=== PATIENT | male | born 1955 | race Caucasian/White ===

== ENCOUNTER 2021-08-17 14:20 | Outpatient (CLI) | payer MEDICARE | END 2021-08-17 14:21 | disposition critical access hospital (66) | LOC: EMS 14:20 | DX: R40.4 Transient alteration of awareness (principal); R53.83 Other fatigue; R15.9 Full incontinence of feces | CPT/HCPCS: A0425; A0429 ==

== ENCOUNTER 2021-08-17 14:35 | Emergency (ER) | payer MEDICARE ==
--- NOTE | 2021-08-17 14:51 | ED Physician Documentation ---
History of Present Illness - Stated complaint Stated Complaint: AMS - History obtained from History obtained from: EMS, Other () - Additonal information Additional information: This is a 65-year-old male who presents via EMS for altered mental status. According to EMS and his the patient had a prostate biopsy at [facility] on 08/15. On 08/16 he became confused and was having some diarrhea. He was incontinent of stool which is unusual for him. Patient is typically healthy and active gentleman who is independent with in the home, drives and his only medical conditions according to his is hypertension. According to yes terday he started to be somewhat confused and weak. He apparently woke up during the night and had incontinence of bowel, according to the he had diarrhea dripping along the floor in the house and then he got back into bed. at the diarrhea was dark and possibly bloody. He has been confused since that time. He will arouse to name and attempt to answer questions but cannot come up with words. He himself denies any specific concerns, he denies any headache, vision changes, speech difficulty, facial weakness or numbness, chest pain or dyspnea, abdominal pain, nausea vomiting or diarrhea, urinary symptoms. He does not however know where he is nor does he know the date. He adamantly denies any drug or alcohol consumption and states he was not given any medication after the procedure. Review of Systems Unable to obtain: AMS PD PAST MEDICAL HISTORY - Past Medical History Past Medical History: Yes Cardiovascular: Hypertension - Present Medications Home Medications: Ambulatory Orders Medication Instructions Recorded Confirmed Lisinopril [Zestril] 20 mg PO DAILY 08/17/21 08/17/21 Nebivolol HCl [Bystolic] 20 mg PO DAILY 08/17/21 08/17/21 Tamsulosin [Flomax] 0.4 mg PO DAILY 08/17/21 08/17/21 allopurinoL [Allopurinol] 300 mg PO DAILY 08/17/21 08/17/21 - Allergies Allergies/Adverse Reactions: Allergies Allergy/AdvReac Type Severity Reaction Status Date / Time No Known Drug Allergies Allergy Verified 08/17/21 15:42 PD ED PE NORMAL - Vitals Vital signs reviewed: Yes - General General: No acute distress, Well developed/nourished, Other (Patient is drowsy, oriented to self but not time or place.) - HEENT HEENT: Atraumatic, PERRL, EOMI, Moist mucous membranes, Pharynx benign - Neck Neck: Supple, no meningeal sign, No adenopathy, No JVD - Cardiac Cardiac: RRR, No murmur, No gallop, No rub, Strong equal pulses - Respiratory Respiratory: No respiratory distress, Clear bilaterally - Abdomen Abdomen: Normal bowel sounds, Soft, Non tender, Non distended, No organomegaly - Derm Derm: Normal color, No rash, Other (Skin is cool and clammy) - Extremities Extremities: No deformity, No tenderness to palpate, Normal ROM s pain, No edema, No calf tenderness / cord - Neuro Neuro: No motor deficit, No sensory deficit, Other (Patient is slow to respond to questions and unable to answer most questions. He is oriented to self only.He moves all extremities on command, he has no focal weakness or facial droop.) Eye Opening: Spontaneous Motor: Obeys Commands Verbal: Confused GCS Score: 14 Results - Vitals Vitals: Vital Signs - 24 hr 08/17/21 08/17/21 08/17/21 14:45 15:16 15:39 Temperature 36.6 C 35.5 C L Heart Rate 76 75 78 Respiratory 18 20 Rate Blood Pressure 124/73 128/74 O2 Saturation 98 95 98 08/17/21 08/17/21 08/17/21 15:46 16:00 16:30 Temperature 36.3 C L Heart Rate 77 74 80 Respiratory 19 15 19 Rate Blood Pressure 125/72 134/95 H 149/82 H O2 Saturation 95 95 97 08/17/21 08/17/21 08/17/21 17:00 17:30 18:00 Temperature 36.3 C L 36.6 C Heart Rate 78 76 81 Respiratory 19 18 17 Rate Blood Pressure 148/92 H 107/72 144/73 H O2 Saturation 98 97 99 08/17/21 08/17/21 18:30 19:00 Temperature 36.5 C Heart Rate 82 85 Respiratory 16 24 Rate Blood Pressure 153/84 H 149/123 H O2 Saturation 97 98 Oxygen O2 Source Room air - EKG (time done) No standard instances Rate: Rate (enter#) (75) Rhythm: NSR Hodges: LAD Intervals: Prolonged QT Compare to prior EKG: Old EKG unavailable Computer interpretation: Agree with computer - Labs Labs: Laboratory Tests 08/17/21 08/17/21 08/17/21 15:11 15:11 15:11 WBC 28.9 H RBC 4.56 L Hgb 15.0 Hct 42.5 MCV 93.2 MCH 32.9 H MCHC 35.3 RDW 14.0 Plt Count 87 L MPV 11.4 Neut # (Auto) Not Reportable Lymph # (Auto) Not Reportable Bulloch # (Auto) Not Reportable Eos # (Auto) Not Reportable Baso # (Auto) Not Reportable Absolute Nucleated RBC Not Reportable Total Counted 100 Band Neuts % (Manual) 24 H Abnorm Lymph % (Manual) 0 Nucleated RBC % Not Reportable Neutrophils # (Manual) 26.6 H Lymphocytes # (Manual) 1.2 L Monocytes # (Manual) 0.6 Eosinophils # (Manual) 0.3 Basophils # (Manual) 0.3 H Differential Comment MANUAL DIFFERENTIAL WBC Morphology NORMAL APPEARANCE Platelet Estimate DECREASED (<130,000) Platelet Morphology NORMAL APPEARANCE RBC Morph Micro Appear NORMAL APPEARANCE Sodium 137 Potassium 4.8 Chloride 101 Carbon Dioxide 19 L Anion Gap 17.0 H BUN 58 H Creatinine 4.3 H Estimated GFR (MDRD) 14 L Glucose 126 H Lactic Acid 3.5 H* Calcium 8.7 Total Bilirubin 1.6 H AST 48 H ALT 29 Alkaline Phosphatase 66 Ammonia Troponin I High Sens Total Protein 7.2 Albumin 3.4 Globulin 3.8 Albumin/Globulin Ratio 0.9 L Urine Color Urine Clarity Urine pH Ur Specific [place] Urine Protein Urine Glucose (UA) Urine Ketones Urine Occult Blood Urine Nitrite Urine Bilirubin Urine Urobilinogen Ur Leukocyte Esterase Urine RBC Urine WBC Ur Squamous Epith Cells Urine Bacteria Urine Culture Comments Nasal Adenovirus (PCR) Nasal B. parapertussis DNA (PCR) Nasal Coronavir 229E PCR Nasal Coronavir HKU1 PCR Nasal Coronavir NL63 PCR Nasal Coronavir OC43 PCR Nasal Enterovir/Rhinovir PCR Nasal Influenza B PCR Nasal Influenza A PCR Nasal Parainfluen 1 PCR Nasal Parainfluen 2 PCR Nasal Parainfluen 3 PCR Nasal Parainfluen 4 PCR Nasal RSV (PCR) Nasal B.pertussis DNA PCR Nasal C.pneumoniae (PCR) Robert Human Metapneumo PCR Nasal M.pneumoniae (PCR) Nasal SARS-CoV-2 (PCR) Urine Opiates Screen Ur Oxycodone Screen Urine Methadone Screen Ur Propoxyphene Screen Ur Barbiturates Screen Ur Tricyclics Screen Ur Phencyclidine Scrn Ur Amphetamine Screen U Methamphetamines Scrn U Benzodiazepines Scrn Urine Cocaine Screen U Cannabinoids Screen Ethyl Alcohol 08/17/21 08/17/21 08/17/21 15:11 15:11 15:30 WBC RBC Hgb Hct MCV MCH MCHC RDW Plt Count MPV Neut # (Auto) Lymph # (Auto) Bulloch # (Auto) Eos # (Auto) Baso # (Auto) Absolute Nucleated RBC Total Counted Band Neuts % (Manual) Abnorm Lymph % (Manual) Nucleated RBC % Neutrophils # (Manual) Lymphocytes # (Manual) Monocytes # (Manual) Eosinophils # (Manual) Basophils # (Manual) Differential Comment WBC Morphology Platelet Estimate Platelet Morphology RBC Morph Micro Appear Sodium Potassium Chloride Carbon Dioxide Anion Gap BUN Creatinine Estimated GFR (MDRD) Glucose Lactic Acid Calcium Total Bilirubin AST ALT Alkaline Phosphatase Ammonia 21.8 Troponin I High Sens 1738.3 H* Total Protein Albumin Globulin Albumin/Globulin Ratio Urine Color BROWN Urine Clarity CLOUDY Urine pH 5.0 Ur Specific [place] >=1.030 H Urine Protein >=300 H Urine Glucose (UA) NEGATIVE Urine Ketones 15 H Urine Occult Blood LARGE H Urine Nitrite POSITIVE H Urine Bilirubin NEGATIVE Urine Urobilinogen 1 (NORMAL) Ur Leukocyte Esterase MODERATE H Urine RBC TNTC H Urine WBC >25 H Ur Squamous Epith Cells FEW Squamous Urine Bacteria Many H Urine Culture Comments INDICATED Nasal Adenovirus (PCR) Nasal B. parapertussis DNA (PCR) Nasal Coronavir 229E PCR Nasal Coronavir HKU1 PCR Nasal Coronavir NL63 PCR Nasal Coronavir OC43 PCR Nasal Enterovir/Rhinovir PCR Nasal Influenza B PCR Nasal Influenza A PCR Nasal Parainfluen 1 PCR Nasal Parainfluen 2 PCR Nasal Parainfluen 3 PCR Nasal Parainfluen 4 PCR Nasal RSV (PCR) Nasal B.pertussis DNA PCR Nasal C.pneumoniae (PCR) Robert Human Metapneumo PCR Nasal M.pneumoniae (PCR) Nasal SARS-CoV-2 (PCR) Urine Opiates Screen NEGATIVE Ur Oxycodone Screen NEGATIVE Urine Methadone Screen NEGATIVE Ur Propoxyphene Screen NEGATIVE Ur Barbiturates Screen NEGATIVE Ur Tricyclics Screen NEGATIVE Ur Phencyclidine Scrn NEGATIVE Ur Amphetamine Screen NEGATIVE U Methamphetamines Scrn NEGATIVE U Benzodiazepines Scrn NEGATIVE Urine Cocaine Screen NEGATIVE U Cannabinoids Screen NEGATIVE Ethyl Alcohol 08/17/21 08/17/21 08/17/21 16:18 16:20 18:30 WBC RBC Hgb Hct MCV MCH MCHC RDW Plt Count MPV Neut # (Auto) Lymph # (Auto) Bulloch # (Auto) Eos # (Auto) Baso # (Auto) Absolute Nucleated RBC Total Counted Band Neuts % (Manual) Abnorm Lymph % (Manual) Nucleated RBC % Neutrophils # (Manual) Lymphocytes # (Manual) Monocytes # (Manual) Eosinophils # (Manual) Basophils # (Manual) Differential Comment WBC Morphology Platelet Estimate Platelet Morphology RBC Morph Micro Appear Sodium Potassium Chloride Carbon Dioxide Anion Gap BUN Creatinine Estimated GFR (MDRD) Glucose Lactic Acid Calcium Total Bilirubin AST ALT Alkaline Phosphatase Ammonia Troponin I High Sens 1254.8 H* Total Protein Albumin Globulin Albumin/Globulin Ratio Urine Color Urine Clarity Urine pH Ur Specific [place] Urine Protein Urine Glucose (UA) Urine Ketones Urine Occult Blood Urine Nitrite Urine Bilirubin Urine Urobilinogen Ur Leukocyte Esterase Urine RBC Urine WBC Ur Squamous Epith Cells Urine Bacteria Urine Culture Comments Nasal Adenovirus (PCR) NOT DETECTED Nasal B. parapertussis DNA (PCR) NOT DETECTED Nasal Coronavir 229E PCR NOT DETECTED Nasal Coronavir HKU1 PCR NOT DETECTED Nasal Coronavir NL63 PCR NOT DETECTED Nasal Coronavir OC43 PCR NOT DETECTED Nasal Enterovir/Rhinovir PCR NOT DETECTED Nasal Influenza B PCR NOT DETECTED Nasal Influenza A PCR NOT DETECTED Nasal Parainfluen 1 PCR NOT DETECTED Nasal Parainfluen 2 PCR NOT DETECTED Nasal Parainfluen 3 PCR NOT DETECTED Nasal Parainfluen 4 PCR NOT DETECTED Nasal RSV (PCR) NOT DETECTED Nasal B.pertussis DNA PCR NOT DETECTED Nasal C.pneumoniae (PCR) NOT DETECTED Robert Human Metapneumo PCR NOT DETECTED Nasal M.pneumoniae (PCR) NOT DETECTED Nasal SARS-CoV-2 (PCR) NOT DETECTED Urine Opiates Screen Ur Oxycodone Screen Urine Methadone Screen Ur Propoxyphene Screen Ur Barbiturates Screen Ur Tricyclics Screen Ur Phencyclidine Scrn Ur Amphetamine Screen U Methamphetamines Scrn U Benzodiazepines Scrn Urine Cocaine Screen U Cannabinoids Screen Ethyl Alcohol < 5.0 08/17/21 18:30 WBC RBC Hgb Hct MCV MCH MCHC RDW Plt Count MPV Neut # (Auto) Lymph # (Auto) Bulloch # (Auto) Eos # (Auto) Baso # (Auto) Absolute Nucleated RBC Total Counted Band Neuts % (Manual) Abnorm Lymph % (Manual) Nucleated RBC % Neutrophils # (Manual) Lymphocytes # (Manual) Monocytes # (Manual) Eosinophils # (Manual) Basophils # (Manual) Differential Comment WBC Morphology Platelet Estimate Platelet Morphology RBC Morph Micro Appear Sodium Potassium Chloride Carbon Dioxide Anion Gap BUN Creatinine Estimated GFR (MDRD) Glucose Lactic Acid 3.0 H* Calcium Total Bilirubin AST ALT Alkaline Phosphatase Ammonia Troponin I High Sens Total Protein Albumin Globulin Albumin/Globulin Ratio Urine Color Urine Clarity Urine pH Ur Specific [place] Urine Protein Urine Glucose (UA) Urine Ketones Urine Occult Blood Urine Nitrite Urine Bilirubin Urine Urobilinogen Ur Leukocyte Esterase Urine RBC Urine WBC Ur Squamous Epith Cells Urine Bacteria Urine Culture Comments Nasal Adenovirus (PCR) Nasal B. parapertussis DNA (PCR) Nasal Coronavir 229E PCR Nasal Coronavir HKU1 PCR Nasal Coronavir NL63 PCR Nasal Coronavir OC43 PCR Nasal Enterovir/Rhinovir PCR Nasal Influenza B PCR Nasal Influenza A PCR Nasal Parainfluen 1 PCR Nasal Parainfluen 2 PCR Nasal Parainfluen 3 PCR Nasal Parainfluen 4 PCR Nasal RSV (PCR) Nasal B.pertussis DNA PCR Nasal C.pneumoniae (PCR) Robert Human Metapneumo PCR Nasal M.pneumoniae (PCR) Nasal SARS-CoV-2 (PCR) Urine Opiates Screen Ur Oxycodone Screen Urine Methadone Screen Ur Propoxyphene Screen Ur Barbiturates Screen Ur Tricyclics Screen Ur Phencyclidine Scrn Ur Amphetamine Screen U Methamphetamines Scrn U Benzodiazepines Scrn Urine Cocaine Screen U Cannabinoids Screen Ethyl Alcohol PD MEDICAL DECISION MAKING - ED course Complexity details: reviewed old records, reviewed results, re-evaluated patient, considered differential, d/w patient, d/w family ED course: This is a 65-year-old male who presented with altered mental status. He is normally independently ambulatory, drives, and lives on the third floor of the house and has no difficulty going up and down, converses without difficulty. Today he is significantly altered. There is concern for possible infection given recent procedure, consider sepsis, toxic encephalopathy, CVA, Medication induced. We obtain a septic work-up which was concerning for a white blood cell count of 28.9, platelets of 87, acute renal failure, lactate of 3.5, and a troponin of greater than 1000. His urinalysis positive for infection, his EKG is nonischemic. There was Concern for possible perforation as it was thought he had a colonoscopy recently though after Talking with Jennifer Emery he had a prostate biopsy. Unable to do a CT with contrast given his renal function CT, noncontrast was reassuring. We we will treat the patient for sepsis secondary to urinary tract infection with Zosyn and IV fluids and repeat his lactate. He is currently hemodynamically stable. I spoke with the booking officer at [facility] and explained the patient had a nonischemic appearing EKG though grossly elevated troponin. He recommended no acute treatment at this time, repeat the troponin and if it is uptrending Then consider transfer, But otherwise he would not start a heparin drip or any other emergent treatment at this time. I discussed with the daytime hospitalist who felt uncomfortable taking this patient at this time. We reviewed we repeated the troponin which improved to 1200 and I will follow up with the unit hospitalist to see if this would be an appropriate admission at this time. Patient Has remained hemodynamically stable Throughout ER stay. He is somewhat restless and confused and does require bilateral wrist restraints for his safety at this time as he has pulled out 3 IVs and is attempting out of bed at times. Departure - Departure Disposition: 66 [facility] DC/Xfer Clinical Impression: Urinary tract infection, Toxic metabolic encephalopathy, Sepsis
[2021-08-17] MEDS ORDERED: IOPAMIDOL-300 100 ML VIAL ONE (14:58)
[2021-08-17 15:20] LABS: BASOPHILS % (AUTO) 0.5 %; EOSINOPHILS % (AUTO) 0.1 %; HCT - HEMATOCRIT 42.5 % (42.0-52.0); LYMPHOCYTES % (AUTO) 4.2 %; MEAN CORPUSCULAR HEMOGLOBIN 32.9 pg (27.0-31.0); MEAN CORPUSCULAR HGB CONC 35.3 g/dL (32.0-36.0); MEAN CORPUSCULAR VOLUME 93.2 fL (80.0-94.0); MEAN PLATELET VOLUME 11.4 fL (7.4-11.4); MONOCYTES % (AUTO) 2.5 %; NEUTROPHILS % (AUTO) 88.6 %; PLT - PLATELET COUNT 87 10^3/uL (130-450); RED BLOOD COUNT 4.56 10^6/uL (4.70-6.10); WHITE BLOOD COUNT 28.9 x10^3/uL (4.8-10.8)
[2021-08-17 15:23] LABS: ABNORMAL LYMPHS % (MANUAL) 0 %
[2021-08-17 15:32] LABS: ALBUMIN 3.4 g/dL (3.2-5.5); ALBUMIN/GLOBULIN RATIO 0.9 (1.0-2.2); BILIRUBIN,TOTAL 1.6 mg/dL (0.2-1.0); CALCIUM 8.7 mg/dL (8.5-10.3); CREATININE 4.3 mg/dL (0.6-1.2); POTASSIUM 4.8 mmol/L (3.5-5.0); TOTAL PROTEIN 7.2 g/dL (6.7-8.2)
[2021-08-17 15:38] LABS: MUDS CUTOFF CONCENTRATIONS CUTOFF CONC BELOW:
[2021-08-17 15:40] LABS: LACTIC ACID, VENOUS 3.5 mmol/L (0.5-2.2)
[2021-08-17 15:41] LABS: GLUCOSE, URINE (UA) NEGATIVE (NEGATIVE); KETONES,URINE (UA) 15 mg/dL (NEGATIVE); LEUKOCYTE ESTERASE, URINE MODERATE (NEGATIVE); NITRITE,URINE POSITIVE (NEGATIVE); OCCULT BLOOD,URINE LARGE (NEGATIVE); PROTEIN,URINE >=300 mg/dL (NEGATIVE); UROBILINOGEN,URINE 1 (NORMAL) E.U./dL (NORMAL)
[2021-08-17] MEDS ORDERED: SODIUM CHLORIDE 0.9% 1,000 ML IV STA ×4 (15:41→20:31)
[2021-08-17] MEDS ORDERED: PIPERACILLIN/TAZOBACTAM 3.375 GM in SODIUM CHLORIDE 0.9% MINIBAG 100 ML IV STA (15:42)
[2021-08-17 15:45] LABS: BACTERIA,URINE Many /HPF (None Seen); BILIRUBIN,URINE NEGATIVE (NEGATIVE); CLARITY,URINE CLOUDY (CLEAR); ICTOTEST,URINE NEGATIVE; RBC,URINE TNTC /HPF (0-5); SQUAMOUS EPITHELIAL CELL,UR FEW Squamous (<= Few); WBC,URINE >25 /HPF (0-3)
[2021-08-17 15:50] LABS: AMPHETAMINE SCREEN,URINE NEGATIVE (NEGATIVE); BARBITURATE SCREEN,UR NEGATIVE (NEGATIVE); BENZODIAZEPINES SCREEN, URINE NEGATIVE (NEGATIVE); COCAINE SCREEN URINE NEGATIVE (NEGATIVE); METHADONE SCREEN, URINE NEGATIVE (NEGATIVE); METHAMPHETAMINES SCREEN, URINE NEGATIVE (NEGATIVE); OPIATE SCREEN, URINE NEGATIVE (NEGATIVE); OXYCODONE SCREEN, URINE NEGATIVE (NEGATIVE); PROPOXYPHENE SCREEN, URINE NEGATIVE (NEGATIVE); THC CANNABINOID SCREEN, URINE NEGATIVE (NEGATIVE); TRICYCLIC ANTIDEPRESSANT,URINE NEGATIVE (NEGATIVE)
[2021-08-17 15:57] LABS: BAND NEUTROPHILS % (MANUAL) 24 %; BASOPHILS # (MANUAL) 0.3 10^3/uL (0-0.1); BASOPHILS % (MANUAL) 1 %; DIFFERENTIAL COMMENT MANUAL DIFFERENTIAL; EOSINOPHILS # (MANUAL) 0.3 10^3/uL (0-0.7); LYMPHOCYTES # (MANUAL) 1.2 10^3/uL (1.5-3.5); LYMPHOCYTES % (MANUAL) 4 %; MONOCYTES # (MANUAL) 0.6 10^3/uL (0.0-1.0); NEUTROPHILS # (MANUAL) 26.6 10^3/uL (1.5-6.6); PLATELET ESTIMATE, MANUAL DECREASED (<130,000) (NORMAL); PLATELET MORPHOLOGY NORMAL APPEARANCE (NORMAL); RBC MORPHOLOGY (MULTIPLE) NORMAL APPEARANCE (NORMAL); WBC MORPHOLOGY (MULTIPLE) NORMAL APPEARANCE (NORMAL)
--- NOTE | 2021-08-17 16:20 | CT Report ---
PROCEDURE: HEAD WO INDICATIONS: AMS TECHNIQUE: Noncontrast 4.5 mm thick angled axial sections acquired from the foramen magnum to the vertex. For r adiation dose reduction, the following was used: automated exposure control, adjustment of mA and/or kV according to patient size. COMPARISON: None. FINDINGS: Image quality: Excellent. CSF spaces: Basal cisterns are patent. No extra-axial fluid collections. Ventricles are normal in size and shape. Brain: No midline shift. No intracranial masses or hemorrhage. [place]ourke-white matter interface is norm al. Skull and face: Calvarium and visualized facial bones are intact, without suspicious lesions. Sinuses: Visualized sinuses and mastoids are clear. IMPRESSION: No acute intracranial process. Reviewed by: Dami Obando MD on 08/17/2021 4:19 PM PDT Approved by: Dami Obando MD on 08/17/2021 4:19 PM PDT Station ID: [id number]
--- NOTE | 2021-08-17 16:27 | CT Report ---
PROCEDURE: Abdomen/Pelvis WO INDICATIONS: concern for perf, recent colonoscopy, now septic TECHNIQUE: Noncontrast 5 mm thick sections acquired from the diaphragms to the symphysis. 5 mm coronal and sagi ttal reformats were then performed. For radiation dose reduction, the following was used: automated exposure control, adjustment of mA and/or kV according to patient size. COMPARISON: None. FINDINGS: Image quality: Excellent. ABDOMEN: Lung bases: Lung bases are clear. Heart size is normal. Solid organs: Liver and spleen are normal in size. Gallbladder is unremarkable Pancreas is normal in contours. There is a small fat-containing mass involving the left adrenal, consistent with a benig n myelolipoma. Kidneys appear somewhat small. No hydronephrosis. Multiple bilateral renal cysts. Ques tion exophytic hyperdense left upper pole renal cyst versus small solid mass measuring approximately 1.5 cm. Peritoneum and bowel: Unenhanced bowel loops demonstrate normal wall thickness and caliber. No free fluid or air. Nodes and vessels: No retroperitoneal or mesenteric adenopathy by size criteria. Aorta and inferior vena cava are normal in caliber. Miscellaneous: No ventral hernias. PELVIS: Genitourinary: Prostate is enlarged. Bladder is mostly decompressed. There is diffuse bladder wall th ickening. Miscellaneous: No inguinal hernias or adenopathy. Bones: No suspicious bony lesions. No vertebral body compression fractures. Lumbar degenerative ch esteban. IMPRESSION: 1. No evidence of free air post colonoscopy. No evidence of acute abdominal process. 2. Enlarged prostate. 3. Decompressed bladder with diffuse bladder wall thickening. 4. Question 1.5 cm exophytic hyperdense cyst versus small solid mass off the upper pole of the left k idney. If desired, this can be evaluated with ultrasound on a nonemergent basis. Reviewed by: Carlos Ramirez MD on 08/17/2021 4:25 PM PDT Approved by: Carlos Ramirez MD on 08/17/2021 4:25 PM PDT Station ID: [id number]
[2021-08-17 17:20] LABS: CORONAVIRUS 229E-RESP PCR NOT DETECTED; CORONAVIRUS HKU1-RESP PCR NOT DETECTED; CORONAVIRUS NL63-RESP PCR NOT DETECTED; CORONAVIRUS OC43-RESP PCR NOT DETECTED; HUMAN METAPNEUMOVIRUS NOT DETECTED; INFLUENZA A- RESP PCR PANEL NOT DETECTED; RHINOVIRUS/ENTEROVIRUS NOT DETECTED; SARS-CoV-2 -RESP PCR PANEL NOT DETECTED
[2021-08-17 17:21] LABS: B. PARAPERTUSSIS- RESP PCR PAN NOT DETECTED; B. PERTUSSIS- RESP PCR PANEL NOT DETECTED; C. PNEUMONIAE- RESP PCR PANEL NOT DETECTED; INFLUENZA B - RESP PCR PANEL NOT DETECTED; M. PNEUMONIAE- RESP PCR PANEL NOT DETECTED; PARAINFLUENZA VIRUS 1 NOT DETECTED; PARAINFLUENZA VIRUS 2 NOT DETECTED; PARAINFLUENZA VIRUS 3 NOT DETECTED; PARAINFLUENZA VIRUS 4 NOT DETECTED; RSV- RESP PCR PANEL NOT DETECTED
[2021-08-17 19:57] LABS: FECAL OCCULT BLOOD (FIT) NEGATIVE (NEGATIVE)
[2021-08-17 20:19] LABS: INR 1.7 (0.8-1.2); PT - PROTHROMBIN TIME 19.4 secs (9.9-12.6)
[2021-08-17 20:22] LABS: ALBUMIN 3.5 g/dL (3.2-5.5); ALBUMIN/GLOBULIN RATIO 1.2 (1.0-2.2); BILIRUBIN,TOTAL 1.7 mg/dL (0.2-1.0); CALCIUM 8.1 mg/dL (8.5-10.3); CREATININE 4.3 mg/dL (0.6-1.2); POTASSIUM 4.1 mmol/L (3.5-5.0); TOTAL PROTEIN 6.5 g/dL (6.7-8.2)
[2021-08-17] MEDS ORDERED: MORPHINE 2 MG/ML CARPUJECT IVP STA (21:04)
[2021-08-17] MEDS ORDERED: PIPERACILLIN/TAZOBACTAM 2.25 GM in SODIUM CHLORIDE 0.9% MINIBAG 100 ML IV SCH (22:00)
[2021-08-17 22:09] LABS: LACTIC ACID, VENOUS 3.3 mmol/L (0.5-2.2)
[2021-08-17] MEDS: hydrALAZINE INJ 20 MG/ML VIAL IVP PRN ×2 (22:13→22:52)
[2021-08-17] MEDS ORDERED: ONDANSETRON 4 MG/2 ML VIAL IVP STA (22:41)
[2021-08-17] MEDS ORDERED: ONDANSETRON 4 MG/2 ML VIAL ONE (22:43)
[2021-08-17 23:07] VITALS: BP 193/85
== END 2021-08-17 23:08 | disposition short-term general hospital (02) ==
LOC: EDUNIT# → ED 14:35
DX: N39.0 Urinary tract infection, site not specified (principal); A41.9 Sepsis, unspecified organism; N17.9 Acute kidney failure, unspecified; G92 Toxic encephalopathy; I10 Essential (primary) hypertension; N13.6 Pyonephrosis; Z20.822 Contact with and (suspected) exposure to COVID-19; R77.8 Other specified abnormalities of plasma proteins
CPT/HCPCS: 36415; 51702; 70450; 74176; 80053; 80306; 81001; 82140; 82274; 83605; 83690; 84484; 85025; 85384; 85610; 87040; 87077; 87086; 87150; 87181; 87631; 93005; 96361; 96365; 96366; 96375; 99285; G0480; 0202U; 80320

== ENCOUNTER 2021-08-17 23:05 | Outpatient (CLI) | payer MEDICARE | END 2021-08-17 23:06 | disposition short-term general hospital (02) | LOC: EMS 23:05 | PROVIDERS: ATTEND Emergency Medicine | DX: A41.9 Sepsis, unspecified organism (principal); N39.0 Urinary tract infection, site not specified; N40.0 Benign prostatic hyperplasia without lower urinary tract symptoms; N17.9 Acute kidney failure, unspecified; G93.41 Metabolic encephalopathy | CPT/HCPCS: A0425; A0426 ==

== ENCOUNTER 2021-10-16 08:00 | Outpatient (CLI) | payer MEDICARE ==
[2021-10-16 18:14] LABS: BASOPHILS # (AUTO) 0.1 10^3/uL (0.0-0.1); BASOPHILS % (AUTO) 0.7 %; EOSINOPHILS # (AUTO) 0.2 10^3/uL (0.0-0.7); HCT - HEMATOCRIT 30.6 % (42.0-52.0); HGB - HEMOGLOBIN 9.8 g/dL (14.0-18.0); LYMPHOCYTES # (AUTO) 1.4 10^3/uL (1.5-3.5); LYMPHOCYTES % (AUTO) 16.8 %; MEAN CORPUSCULAR HEMOGLOBIN 30.9 pg (27.0-31.0); MEAN CORPUSCULAR VOLUME 96.5 fL (80.0-94.0); MEAN PLATELET VOLUME 11.1 fL (7.4-11.4); MONOCYTES # (AUTO) 0.5 10^3/uL (0.0-1.0); MONOCYTES % (AUTO) 6.4 %; NEUTROPHILS # (AUTO) 6.2 10^3/uL (1.5-6.6); PLT - PLATELET COUNT 233 10^3/uL (130-450); RED BLOOD COUNT 3.17 10^6/uL (4.70-6.10); RED CELL DISTRIBUTION WIDTH 15.3 % (12.0-15.0); WHITE BLOOD COUNT 8.5 x10^3/uL (4.8-10.8)
[2021-10-16 18:25] LABS: ALBUMIN 3.7 g/dL (3.2-5.5); ALBUMIN/GLOBULIN RATIO 1.2 (1.0-2.2); BILIRUBIN,TOTAL 0.7 mg/dL (0.2-1.0); CALCIUM 8.9 mg/dL (8.5-10.3); CREATININE 2.3 mg/dL (0.6-1.2); TOTAL PROTEIN 6.8 g/dL (6.7-8.2)
== END 2021-10-16 23:59 | disposition home or self-care (01) ==
LOC: LAB.N 08:00
PROVIDERS: ATTEND Nurse Practitioner
DX: R47.81 Slurred speech (principal)
CPT/HCPCS: 36415; 80053; 85025

== ENCOUNTER 2022-10-22 15:33 | Outpatient (CLI) | payer MEDICARE ==
[2022-10-22 16:03] LABS: BASOPHILS # (AUTO) 0.1 10^3/uL (0.0-0.1); BASOPHILS % (AUTO) 0.7 %; EOSINOPHILS # (AUTO) 0.1 10^3/uL (0.0-0.7); EOSINOPHILS % (AUTO) 1.9 %; HCT - HEMATOCRIT 33.1 % (42.0-52.0); HGB - HEMOGLOBIN 10.7 g/dL (14.0-18.0); LYMPHOCYTES # (AUTO) 1.4 10^3/uL (1.5-3.5); LYMPHOCYTES % (AUTO) 18.6 %; MEAN CORPUSCULAR HEMOGLOBIN 30.1 pg (27.0-31.0); MEAN CORPUSCULAR HGB CONC 32.3 g/dL (32.0-36.0); MEAN CORPUSCULAR VOLUME 93.2 fL (80.0-94.0); MEAN PLATELET VOLUME 9.6 fL (7.4-11.4); MONOCYTES # (AUTO) 0.5 10^3/uL (0.0-1.0); NEUTROPHILS # (AUTO) 5.2 10^3/uL (1.5-6.6); NEUTROPHILS % (AUTO) 70.8 %; PLT - PLATELET COUNT 223 10^3/uL (130-450); RED BLOOD COUNT 3.55 10^6/uL (4.70-6.10); RED CELL DISTRIBUTION WIDTH 16.2 % (12.0-15.0); WHITE BLOOD COUNT 7.3 x10^3/uL (4.8-10.8)
[2022-10-22 16:07] LABS: PT - PROTHROMBIN TIME 54.4 secs (9.9-12.6)
[2022-10-22 16:10] LABS: ALBUMIN 3.4 g/dL (3.2-5.5); BILIRUBIN,TOTAL 0.4 mg/dL (0.2-1.0); CALCIUM 8.4 mg/dL (8.5-10.3); CREATININE 1.6 mg/dL (0.6-1.2); POTASSIUM 5.1 mmol/L (3.5-5.0); TOTAL PROTEIN 6.9 g/dL (6.7-8.2)
[2022-10-22 16:15] LABS: INR 5.4 (0.8-1.2)
== END 2022-10-22 15:34 | disposition home or self-care (01) ==
LOC: LAB 15:33
DX: C61 Malignant neoplasm of prostate (principal); C79.51 Secondary malignant neoplasm of bone
CPT/HCPCS: 36415; 80053; 84153; 85025; 85610

== ENCOUNTER 2022-10-27 11:26 | Outpatient (CLI) | payer MEDICARE ==
[2022-10-27 11:54] LABS: INR 1.2 (0.8-1.2)
== END 2022-10-27 11:27 | disposition home or self-care (01) ==
LOC: LAB 11:26
DX: Z79.01 Long term (current) use of anticoagulants (principal)
CPT/HCPCS: 36415; 85610

== ENCOUNTER 2024-12-07 07:09 | Inpatient (IN) ==
--- NOTE | 2024-12-07 07:26 | ED Physician Documentation ---
PD HPI DYSPNEA Stated complaint Stated Complaint: SOA/FLANK PX Chief complaint Chief Complaint: Resp History obtained from History obtained from: Patient and EMS History of Present Illness Similar symptoms before: Has not had sx before (prior some degree of CHF, but states current is much more than prior. History of CKI with care at [facility]. ) Recently seen: Emergency Dept (seen 2 days ago for weakness/fall and had head CT that was normal. Not apparently complaining of chest/abd tender at the time. Noted anemic with Hgb 6.5, trasnfused 2 units and was feeling mod better. ) Meds/Allgy Home Medications Ambulatory Orders Medication Instructions Recorded Confirmed allopurinol 300 mg tablet 300 mg PO DAILY 08/17/21 12/07/24 tamsulosin 0.4 mg capsule 0.8 mg PO HS 08/17/21 12/07/24 amlodipine 5 mg tablet 5 mg PO HS 12/07/24 12/07/24 bumetanide 1 mg tablet 1 mg PO DAILY 12/07/24 12/07/24 clonidine HCl 0.2 mg tablet 0.2 mg PO BID 12/07/24 12/07/24 enzalutamide 40 mg capsule (Xtandi) 160 mg PO DAILY 12/07/24 12/07/24 metoprolol succinate 25 mg 25 mg PO BID 12/07/24 12/07/24 tablet,extended release 24 hr oxycodone 5 mg tablet 2.5 - 5 mg PO Q4HR PRN pain 12/07/24 12/07/24 warfarin 2 mg tablet 4 mg PO DAILY 12/07/24 12/07/24 Allergies Allergies Allergy/AdvReac Type Severity Reaction Status Date / Time furosemide Allergy Mild tinnitis Verified 12/07/24 07:35 [facility] Medical History Medical History Atrial fibrillation Social History Social History Smoking Status: Never smoker Second hand tobacco smoke exposure: No Do you dip or chew tobacco?: No Do you vape?: No Patient requests smoking cessation consult: No Initiate information on smoking cessation: No Relationship: Level: Dependent Home Mobility Equipment: Wheeled walker Do you feel safe in your home environment?: Yes Suffered physical, verbal, emotional, or financial abuse?: No History of Abuse: No Substance Use: denies use Exam Constitutional abnormal general appearance (disheveled) and distress noted (seems weak and slow/effortful to answer questions. Tachypnea/tachycardia) (moderate) HENMT oral mucous membranes abnormal (dry) and oropharynx normal Lymph no lymphadenopathy noted Chest palpation of chest abnormal (tender lateral/posterior left chest wall without crepitance. LUQ abd too. ) Respiratory breath sounds equal bilaterally, abnormal respiratory effort (labored) and auscultation abnormal (vesicular breath sounds) Cardiovascular heart rate abnormal (tachycardic), rhythm abnormal (irregular), JVD noted (JVD noted at 60 degrees upright. ) and edema noted (2-3+ pitting edema in both legs up to the abdomen. Some edema in scrotum.) Gastrointestinal abdomen soft to palpation, tender to palpation (moderate) and (LUQ) and abnormal bowel sounds noted (hypoactive bowel sounds) Results Vitals Vitals: Vital Signs - 24 hr 12/07/24 07:10 12/07/24 07:59 12/07/24 08:04 Temperature 36.9 C Temperature Source Pulse Rate 123 H 120 H Respiratory Rate 26 H 24 Blood Pressure 146/91 H O2 Saturation 95 Oxygen Delivery Method O2 Source Room air Nasal cannula Oxygen Flow Rate If not protocol: Oxygen Flow, liters/minute Pain Intensity 7 8 12/07/24 08:16 12/07/24 08:25 12/07/24 08:35 Temperature 36.3 C L Temperature Source Temporal Artery Scan Pulse Rate 120 H Respiratory Rate 24 Blood Pressure 136/102 H O2 Saturation 94 Oxygen Delivery Method Room Air O2 Source Room air Oxygen Flow Rate If not protocol: Oxygen Flow, liters/minute Pain Intensity 8 8 12/07/24 08:56 12/07/24 09:12 12/07/24 09:13 Temperature Temperature Source Pulse Rate 121 H 109 H Respiratory Rate 20 18 Blood Pressure 153/86 H 127/102 H O2 Saturation 93 92 Oxygen Delivery Method O2 Source Room air Room air Oxygen Flow Rate If not protocol: Oxygen Flow, liters/minute Pain Intensity 8 9 9 12/07/24 09:15 12/07/24 09:20 12/07/24 09:25 Temperature Temperature Source Pulse Rate 110 H 116 H 114 H Respiratory Rate 18 21 24 Blood Pressure 136/81 H O2 Saturation 92 89 L 88 L Oxygen Delivery Method O2 Source Room air Room air Room air Oxygen Flow Rate If not protocol: Oxygen Flow, liters/minute Pain Intensity 9 8 8 12/07/24 09:30 12/07/24 09:45 12/07/24 09:52 Temperature Temperature Source Pulse Rate 113 H 113 H Respiratory Rate 88 H 25 H Blood Pressure 124/88 127/93 H O2 Saturation 25 L 90 L Oxygen Delivery Method Nasal Cannula O2 Source Room air Room air Oxygen Flow Rate 2 If not protocol: Oxygen Flow, liters/minute Pain Intensity 8 8 12/07/24 09:52 12/07/24 09:52 12/07/24 10:18 Temperature Temperature Source Pulse Rate 115 H 115 H Respiratory Rate 20 18 Blood Pressure 145/108 H O2 Saturation 94 97 Oxygen Delivery Method O2 Source Nasal cannula Nasal cannula Oxygen Flow Rate If not protocol: Oxygen Flow, liters/minute 2 2 Pain Intensity 8 8 7 12/07/24 10:52 12/07/24 11:51 12/07/24 12:09 Temperature Temperature Source Pulse Rate 116 H 106 H Respiratory Rate 22 18 Blood Pressure 134/102 H 140/108 H O2 Saturation 93 96 Oxygen Delivery Method O2 Source Nasal cannula Nasal cannula Oxygen Flow Rate If not protocol: Oxygen Flow, liters/minute 2 2 Pain Intensity 7 8 8 12/07/24 12:10 12/07/24 13:15 12/07/24 14:42 Temperature 36.2 C L Temperature Source Temporal Artery Scan Pulse Rate 115 H 113 H 118 H Respiratory Rate 22 20 20 Blood Pressure 145/103 H 140/106 H 135/102 H O2 Saturation 95 93 94 Oxygen Delivery Method O2 Source Nasal cannula Nasal cannula Room air Oxygen Flow Rate If not protocol: Oxygen Flow, liters/minute 2 2 Pain Intensity 8 0 8 12/07/24 15:00 Temperature Temperature Source Pulse Rate 117 H Respiratory Rate Blood Pressure 135/95 H O2 Saturation 96 Oxygen Delivery Method O2 Source Room air Oxygen Flow Rate If not protocol: Oxygen Flow, liters/minute Pain Intensity 8 Oxygen O2 Source Room air Oxygen Flow Rate 2 EKG (time done) 08:12: EKG releavant findings:: EKG personally interpreted by author of this note. Relevant findings are: Rate: Rate (enter#) (120) Rhythm: Atrial flutter Intervals: Prolonged QT QRS: No Wide QRS Ischemia: Non specific changes; No Hyperacute T waves Compare to prior EKG: Unchanged from prior EKG Labs Labs: Laboratory Tests 12/07/24 12/07/24 12/07/24 07:26 07:41 08:10 WBC 6.9 RBC 2.67 L Hgb 8.3 L Hct 27.7 L MCV 103.7 H MCH 31.1 H MCHC 30.0 L RDW 21.2 H Plt Count 257 MPV 9.3 Neut # (Auto) 5.0 Lymph # (Auto) 0.7 L [place] # (Auto) 0.7 Eos # (Auto) 0.0 Baso # (Auto) 0.0 Absolute Nucleated RBC 0.06 Nucleated RBC % 0.9 Manual Slide Review Indicated RBC Morph Micro Appear 4+ ANISOCYTOSIS PT 18.6 H INR 1.8 H Sodium 139 Potassium 6.3 H* Chloride 113 H Carbon Dioxide 16 L Anion Gap 10.0 BUN 52 H Creatinine 1.8 H Estimated GFR (MDRD) 38 L Glucose 154 H POC Whole Bld Glucose Calcium 8.3 L Magnesium 1.9 Total Bilirubin 1.0 AST 9 L ALT 8 L Alkaline Phosphatase 103 Troponin I High Sens 17.6 B-Natriuretic Peptide 4903 H Total Protein 6.3 L Albumin 2.9 L Globulin 3.4 Albumin/Globulin Ratio 0.9 L Lipase 14 Nasal Adenovirus (PCR) NOT DETECTED Nasal B. parapertussis DNA (PCR) NOT DETECTED Nasal Coronavir 229E PCR NOT DETECTED Nasal Coronavir HKU1 PCR NOT DETECTED Nasal Coronavir NL63 PCR NOT DETECTED Nasal Coronavir OC43 PCR NOT DETECTED Nasal Enterovir/Rhinovir PCR NOT DETECTED Nasal Influenza B PCR NOT DETECTED Nasal Influenza A PCR NOT DETECTED Nasal Parainfluen 1 PCR NOT DETECTED Nasal Parainfluen 2 PCR NOT DETECTED Nasal Parainfluen 3 PCR NOT DETECTED Nasal Parainfluen 4 PCR NOT DETECTED Nasal RSV (PCR) NOT DETECTED Nasal B.pertussis DNA PCR NOT DETECTED Nasal C.pneumoniae (PCR) NOT DETECTED Robert Human Metapneumo PCR NOT DETECTED Nasal M.pneumoniae (PCR) NOT DETECTED Nasal SARS-CoV-2 (PCR) NOT DETECTED Blood Type B POSITIVE Antibody Screen NEGATIVE JOSE, IgG Specific NEGATIVE JOSE, Polyspecific NEGATIVE JOSE, C3d Specific NEGATIVE 12/07/24 12/07/24 12/07/24 11:15 12:15 13:12 WBC RBC Hgb Hct MCV MCH MCHC RDW Plt Count MPV Neut # (Auto) Lymph # (Auto) [place] # (Auto) Eos # (Auto) Baso # (Auto) Absolute Nucleated RBC Nucleated RBC % Manual Slide Review RBC Morph Micro Appear PT INR Sodium 140 138 Potassium 6.6 H* 6.6 H* Chloride 113 H 111 Carbon Dioxide 19 L 18 L Anion Gap 8.0 9.0 BUN 53 H 53 H Creatinine 1.9 H 1.9 H Estimated GFR (MDRD) 35 L 35 L Glucose 146 H 204 H POC Whole Bld Glucose 151 Calcium 8.4 L 8.3 L Magnesium 1.9 Total Bilirubin AST ALT Alkaline Phosphatase Troponin I High Sens B-Natriuretic Peptide Total Protein Albumin Globulin Albumin/Globulin Ratio Lipase Nasal Adenovirus (PCR) Nasal B. parapertussis DNA (PCR) Nasal Coronavir 229E PCR Nasal Coronavir HKU1 PCR Nasal Coronavir NL63 PCR Nasal Coronavir OC43 PCR Nasal Enterovir/Rhinovir PCR Nasal Influenza B PCR Nasal Influenza A PCR Nasal Parainfluen 1 PCR Nasal Parainfluen 2 PCR Nasal Parainfluen 3 PCR Nasal Parainfluen 4 PCR Nasal RSV (PCR) Nasal B.pertussis DNA PCR Nasal C.pneumoniae (PCR) Robert Human Metapneumo PCR Nasal M.pneumoniae (PCR) Nasal SARS-CoV-2 (PCR) Blood Type Antibody Screen JOSE, IgG Specific JOSE, Polyspecific JOSE, C3d Specific PD Medical Decision Making ED course Complexity details: reviewed old records, reviewed results, considered differential (patient with some CAD by history and is on diuretic Bumex and beta naga. However, he states no prior episodes of similar degree of dyspnea nad edema. Recently seen for anemia with dysnpnea and given 2 units blood. So may have fluid overloaded. He does have edema and elevated BNP, so doubt TRALI. ), d/w patient, d/w family and d/w event management consultant (I talked with Dr. Landin who is on- call for nephrology at [facility] who stated he did not feel the patient needed to be transferred and declined from his perspective. He suggested continue Bumex 3 mg every 4-6 hours/ electrolytes. Continue Lokelma BIT/TID. No bicarb drip.) Reviewed Lab Results: Creatinine is about at baseline with potassium elevated at 6.3. Given dose of bicarb, calclium gluconate, and Lokelma. Repeat K is the sate as is creatinine, so repeated bicarb and also given D10 and insulin. Repeat Lokelma and calcium at direction of Neprhology, whom I consulted for potential transfer after discussion with hospitalist. Dr. Lopez said he did not feel the pt would benefit from transfer at this time given Creatinine at baseline. To continue diuresis with higher Bumex/diuretics. Consult further if needed. CT chest and abdomen did not show any hydronephrosis, nor lung injuryes. Identified is known bony lesions from prostate CA. Elder in did not show urinary retention and was used to show response to diuresis in this critically ill patient. Social Determinants of Health: Discussion with pt about goals of care found that the pt would not want dialysis if needed, though his present with him states they have not had prior discussion along the line of POLST/DNR/etc. The patient is somewhat foggy though process here, so it needs further exploration to see if accurate current decision on limits of care. Critical Care Time(min): 50 Comments: eval of critical lab values and therapeutic response to elevated creatinine and potassium, eval for trunk injuries. monitoring frequent HR and rhythm. Time Includes: Direct patient care, Reassess patient, Document care, Coordinate care and Medical consult (hospitalist and nephrology. ) Discharge Plan Discharge Patient Disposition: [facility] DC/Xfer Condition: Stable Clinical Impression: Acute exacerbation of CHF (congestive heart failure), Dyspnea, Atrial fibrillation/flutter, Chronic renal failure, Prostate cancer metastatic to bone, History of recent fall Anemia Qualifiers: Anemia type: unspecified type Qualified Code(s): D64.9 - Anemia, unspecified Chest wall contusion Qualifiers: Encounter type: initial encounter Laterality: left Qualified Code(s): S20.212A - Contusion of left front wall of thorax, initial encounter Interventions: ED Admission Assessment Last Done: 12/07/24 16:15
[2024-12-07] MEDS ORDERED: iohexoL-300 100 ML VIAL ONE ×2 (07:40→09:32)
[2024-12-07 07:56] LABS: BASOPHILS % (AUTO) 0.3 %; EOSINOPHILS % (AUTO) 0.1 %; HCT - HEMATOCRIT 27.7 % (42.0-52.0); HGB - HEMOGLOBIN 8.3 g/dL (14.0-18.0); LYMPHOCYTES # (AUTO) 0.7 10^3/uL (1.5-3.5); LYMPHOCYTES % (AUTO) 10.3 %; MEAN CORPUSCULAR HEMOGLOBIN 31.1 pg (27.0-31.0); MEAN CORPUSCULAR VOLUME 103.7 fL (80.0-94.0); MEAN PLATELET VOLUME 9.3 fL (7.4-11.4); MONOCYTES # (AUTO) 0.7 10^3/uL (0.0-1.0); MONOCYTES % (AUTO) 9.8 %; NEUTROPHILS % (AUTO) 72.1 %; NRBC ABSOLUTE COUNT (AUTO) 0.06 x10^3/uL; NUCLEATED RED BLOOD CELLS AUTO 0.9 /100WBC; PLT - PLATELET COUNT 257 10^3/uL (130-450); RED BLOOD COUNT 2.67 10^6/uL (4.70-6.10); RED CELL DISTRIBUTION WIDTH 21.2 % (12.0-15.0); WHITE BLOOD COUNT 6.9 x10^3/uL (4.8-10.8)
[2024-12-07] MEDS: ALBUTEROL NEB 2.5 MG/3 ML INH STA (07:57)
[2024-12-07 08:00] LABS: RBC MORPHOLOGY (MULTIPLE) 4+ ANISOCYTOSIS (NORMAL)
[2024-12-07 08:01] LABS: SLIDE REVIEW? Indicated
[2024-12-07 08:03] LABS: INR 1.8 (0.8-1.2); PT - PROTHROMBIN TIME 18.6 secs (9.9-12.6)
[2024-12-07] MEDS: MORPHINE 2 MG/ML CARPUJECT IVP STA (08:04)
[2024-12-07 08:05] LABS: MAGNESIUM 1.9 mg/dL (1.7-2.3)
[2024-12-07] MEDS: BUMETANIDE 1 MG/4 ML VIAL IVP STA ×3 (08:05→18:56)
[2024-12-07 08:12] LABS: ALBUMIN 2.9 g/dL (3.2-5.5); ALBUMIN/GLOBULIN RATIO 0.9 (1.0-2.2); CALCIUM 8.3 mg/dL (8.5-10.3); CREATININE 1.8 mg/dL (0.6-1.3); POTASSIUM 6.3 mmol/L (3.5-4.5); TOTAL PROTEIN 6.3 g/dL (6.4-8.9)
[2024-12-07 08:17] LABS: TROPONIN I HIGH SENSITIVITY 17.6 ng/L (2.3-19.7)
[2024-12-07] MEDS: LIDOCAINE 2% URO-JET 5 ML SYRINGE UR STA (08:39)
[2024-12-07] MEDS: SODIUM BICARBONATE ABBOJECT 50 MEQ/50 ML SYRINGE IVP STA (08:46)
[2024-12-07] MEDS: CALCIUM GLUC 1,000MG/50ML-NACL 1,000 MG/50 ML BAG IV STA ×2 (08:47→12:45)
[2024-12-07] MEDS: HYDROmorphone 0.5 MG/0.5 ML SYRINGE IVP STA (09:12)
[2024-12-07] MEDS: METOPROLOL 5 MG/5 ML VIAL IVP STA (09:14)
[2024-12-07 09:22] LABS: B. PARAPERTUSSIS- RESP PCR PAN NOT DETECTED; B. PERTUSSIS- RESP PCR PANEL NOT DETECTED; C. PNEUMONIAE- RESP PCR PANEL NOT DETECTED; CORONAVIRUS 229E-RESP PCR NOT DETECTED; CORONAVIRUS HKU1-RESP PCR NOT DETECTED; CORONAVIRUS NL63-RESP PCR NOT DETECTED; CORONAVIRUS OC43-RESP PCR NOT DETECTED; HUMAN METAPNEUMOVIRUS NOT DETECTED; INFLUENZA A- RESP PCR PANEL NOT DETECTED; INFLUENZA B - RESP PCR PANEL NOT DETECTED; M. PNEUMONIAE- RESP PCR PANEL NOT DETECTED; PARAINFLUENZA VIRUS 1 NOT DETECTED; PARAINFLUENZA VIRUS 2 NOT DETECTED; PARAINFLUENZA VIRUS 4 NOT DETECTED; RHINOVIRUS/ENTEROVIRUS NOT DETECTED; RSV- RESP PCR PANEL NOT DETECTED; SARS-CoV-2 -RESP PCR PANEL NOT DETECTED
--- NOTE | 2024-12-07 09:25 | XRAY Report ---
PROCEDURE: XR Chest 1V INDICATIONS: dyspnea TECHNIQUE: One view of the chest was acquired. COMPARISON: None. FINDINGS: Surgical changes and devices: None. Lungs and pleura: Peribronchial cuffing with increased interstitial markings. No effusions or pneumo thorax. Mediastinum: Mediastinal contours appear normal. Heart size is enlarged. Bones and chest wall: No suspicious bony lesions. Overlying soft tissues appear unremarkable. IMPRESSION: Peribronchial cuffing with increased interstitial markings, suggestive of mild to moderate pulmonary edema. Reviewed by: Avinash Schaefer MD on 12/07/2024 9:24 AM PST Approved by: Avinash Schaefer MD on 12/07/2024 9:24 AM [facility] Station ID: [id number]
[2024-12-07] MEDS: iohexoL-300 100 ML VIAL IVP ONE (10:16)
--- NOTE | 2024-12-07 10:29 | CT Report ---
PROCEDURE: CT Chest W INDICATIONS: fall with chest wall injury, dyspnea CONTRAST: OMNI 300 100ML TECHNIQUE: After the administration of intravenous contrast, a CT scan of the chest was performed. Images were recorded and evaluated at appropriate window settings. Reformats: axial MIP of the chest, coronal and sagittal. For radiation dose reduction, the following was used: automated exposure control, adjustme nt of mA and/or kV according to patient size. COMPARISON: 08/17/2021 FINDINGS: Image quality: Diagnostic. Chest wall and lower neck: No thyroid nodule which requires sonographic follow up. No breast mass. No axillary or supraclavicular adenopathy by size. Swelling overlying the lower left chest wall, with s oft tissue edema. Lungs and pleura: Small pleural effusions. Smooth interstitial thickening. Perihilar groundglass. Mediastinum: Heart size is enlarged. No pericardial effusion. No large vessel abnormality. Enlarged p revascular lymph node measuring 1.7 x 3.2 cm on the left (series 2, image 35). Bones: Diffuse sclerotic osseous metastatic disease. No displaced fracture. Upper Abdomen: Separately dictated. IMPRESSION: Soft tissue edema overlying the lower left chest wall, without underlying fracture. Extensive sclerotic osseous metastatic disease, likely prostate in this age group. Correlate with PSA and consider prostate MRI with contrast. Enlarged prevascular lymph node, probably related to malignancy. Moderate pulmonary edema and small pleural effusions. Reviewed by: Avinash Schaefer MD on 12/07/2024 10:28 AM [facility] Approved by: Avinash Schaefer MD on 12/07/2024 10:28 AM PST Station ID: [id number]
--- NOTE | 2024-12-07 10:35 | CT Report ---
PROCEDURE: CT Abdomen/Pelvis W INDICATIONS: fall with left abd/flank pain CONTRAST: OMNI 300 100ML TECHNIQUE: After the administration of intravenous contrast, a CT scan of the abdomen and pelvis was performed. Images were recorded and evaluated at appropriate window settings. Reformats: coronal and sagittal. F or radiation dose reduction, the following was used: automated exposure control, adjustment of mA and /or kV according to patient size. COMPARISON: 08/17/2021 FINDINGS: Image quality: Diagnostic. Lower chest: Separately dictated Liver: No solid mass. Small cyst in segment 4. Gallbladder: No radiopaque stones or wall thickening. Biliary tree: No intrahepatic or extrahepatic dilation, accounting for age. Spleen: No splenomegaly. Pancreas: No pancreatic ductal dilation. Adrenals: Benign left adrenal myelolipoma measuring 1.4 cm, with macroscopic fat. Kidneys and ureters : Solid, enhancing mass on the anterior margin of the left kidney measuring 1.8 x 1.8 cm, previously 0.6 cm in 2020. Multiple renal cysts. Stomach, bowel and peritoneum: No gastric or small bowel dilation. No abnormal wall thickening. No pa thologic free fluid. Diverticulosis without evidence of diverticulitis. Lymph nodes: No central or retroperitoneal adenopathy. Vessels: No infrarenal aortic aneurysm. Patent portal vein. PELVIS Reproductive organs: Prostate is enlarged, with heterogeneous enhancement. Bladder: Decompressed around a Elder catheter. Pelvic lymph nodes: Prominent pelvic chain lymph nodes, largest measuring 1.1 cm short axis in the le ft external iliac chain (series 2, image 135). Bones: Diffuse sclerotic osseous metastatic disease. Other: Left flank subcutaneous edema. IMPRESSION: Left flank subcutaneous edema without underlying fracture. Diffuse osseous metastatic disease, sclerotic, likely prostate cancer in this age group, as there are prominent cysts pelvic chain lymph nodes present and the prostate is enlarged, with heterogeneous en hancement. Recommend further workup with PSA and prostate MRI. Urology referral is also recommended. Other chronic findings as above. Reviewed by: Avinash Schaefer MD on 12/07/2024 10:34 AM PST Approved by: Avinash Schaefer MD on 12/07/2024 10:34 AM PST Station ID: [id number]
[2024-12-07 11:36] LABS: MAGNESIUM 1.9 mg/dL (1.7-2.3)
[2024-12-07 11:48] LABS: CALCIUM 8.4 mg/dL (8.5-10.3); CREATININE 1.9 mg/dL (0.6-1.3); POTASSIUM 6.6 mmol/L (3.5-4.5)
[2024-12-07] MEDS: METOPROLOL SUCCINATE 25 MG TABLET PO SCH ×2 (11:49→21:19)
[2024-12-07] MEDS: HYDROmorphone 1 MG/ML CARPUJECT IVP STA (12:09)
[2024-12-07] MEDS: DEXTROSE 10% 250 ML IV STA (12:26)
[2024-12-07] MEDS: INSULIN REGULAR, HUMAN 300 UNIT/3 ML PEN IVP ONE ×2 (12:32→18:58)
[2024-12-07] MEDS: SODIUM ZIRCONIUM CYCLOSILICATE 5 GM PACKET PO STA ×3 (12:34→21:18)
[2024-12-07 13:34] LABS: CALCIUM 8.3 mg/dL (8.5-10.3); POTASSIUM 6.6 mmol/L (3.5-4.5)
[2024-12-07 13:35] LABS: CREATININE 1.9 mg/dL (0.6-1.3)
--- NOTE | 2024-12-07 14:19 | HISTORY & PHYSICAL EXAMINATION ---
Chief Complaint Chief Complaint Chief Complaint: Dyspnea History of Present Illness History Obtained From Records Reviewed: Yes History obtained from: Patient and patient's at bedside Exam Limitations: None History of Present Illness HPI Comment/Other: Patient is a 69-year-old male with a history of heart failure with unknown ejection fraction, atrial flutter on Coumadin, chronic kidney disease with baseline of 1.9 who presented for dyspnea. Patient states that it has been happening gradually. He states he has been taking his Bumex as prescribed. He has not had an increase in his salt intake or his fluid intake. He does states a history of heart failure, but does not know what his ejection fraction is. He has an appointment to see public health social worker, but has not had the chance to see him yet. He has a history of chronic kidney disease. His creatinine is about his baseline. He also has a history of prostate cancer, and has some difficulty with urination and urinary retention. In the emergency room, patient's blood pressure was 136/102, he was saturating 88% on 2 to 3 L, and his heart rate was between 113-120. He was afebrile. EKG did show atrial flutter. Chest CT and abdominal/pelvis CT was done. Chest CT showed soft tissue edema overlying the lower left chest wall fracture, as well as extensive sclerotic osseous metastatic disease. He also had moderate pulmonary edema and small pleural effusions. He does not recall his last colonoscopy. He does have an extensive history of prostate cancer with mets to the bone. Of note, he was just here with a hemoglobin of 6.5 on 12/02/2024. He was given 2 units of blood. Today, he returns with a hemoglobin of 8.3. At that time, his potassium was elevated as well at 5.7, and his creatinine was 1.9. Today, his potassium is 6.6 and creatinine is 1.9. Thus far, he has received two 2 mg doses of Bumex, Lokelma, calcium gluconate, insulin and D50 with no improvement of his potassium. As such, I spoke with the emergency room, and they spoke with a public health social worker. He did not think that the patient required transfer at this time. He recommended 3 mg IV Bumex, as well as Lokelma, as well as to continue to trend the potassium. Meds/Allgy Home Medications Ambulatory Orders Medication Instructions Recorded Confirmed allopurinol 300 mg tablet 300 mg PO DAILY 08/17/21 12/07/24 tamsulosin 0.4 mg capsule 0.8 mg PO HS 08/17/21 12/07/24 amlodipine 5 mg tablet 5 mg PO HS 12/07/24 12/07/24 bumetanide 1 mg tablet 1 mg PO DAILY 12/07/24 12/07/24 clonidine HCl 0.2 mg tablet 0.2 mg PO BID 12/07/24 12/07/24 enzalutamide 40 mg capsule (Xtandi) 160 mg PO DAILY 12/07/24 12/07/24 metoprolol succinate 25 mg 25 mg PO BID 12/07/24 12/07/24 tablet,extended release 24 hr oxycodone 5 mg tablet 2.5 - 5 mg PO Q4HR PRN pain 12/07/24 12/07/24 warfarin 2 mg tablet 4 mg PO DAILY 12/07/24 12/07/24 Allergies Allergies Allergy/AdvReac Type Severity Reaction Status Date / Time furosemide Allergy Mild tinnitis Verified 12/07/24 07:35 [facility] Medical History Medical History Atrial fibrillation Social History Social History Smoking Status: Never smoker Second hand tobacco smoke exposure: No Do you dip or chew tobacco?: No Do you vape?: No Patient requests smoking cessation consult: No Initiate information on smoking cessation: No Relationship: Level: Dependent Home Mobility Equipment: Wheeled walker Do you feel safe in your home environment?: Yes Suffered physical, verbal, emotional, or financial abuse?: No History of Abuse: No Substance Use: denies use POLST Patient has POLST: No POLST Status: Full Code Review of Systems Constitutional Reports: Fatigue, Malaise, Weakness and Diaphoresis; Denies: Fever, Chills, Night sweats or Changes in appetite or eating habits Eyes Denies: Pain, Irritation, Amaurosis, Blurry vision, Floaters, Field loss or Vision loss Ears, nose, mouth, and throat Denies: Ear pain, Ear discharge, Hearing loss, Hearing aids, Tinnitus, Neck pain or Throat swelling Cardiovascular Reports: Irregular heart rate, edema, swelling of feet/ankles and shortness of breath with exertion; Denies: chest pain, palpitations, Syncope or lightheadedness Respiratory Reports: Shortness of breath and Snoring; Denies: Cough, Sputum production, Change in phlegm color, Wheezing or Apnea Gastrointestinal Denies: Abdominal pain, Abdominal distention, Nausea, Vomiting, Poor appetite, Coffee grounds in vomit, Heartburn or Diarrhea Genitourinary Denies: Painful urination, Flank pain, Incontinence, Urinary frequency or Urinary urgency Musculoskeletal Denies: Back pain, Neck pain, Extremity pain or Extremity swelling Integumentary/Breast Denies: Rash, Itching, Dryness, Redness, Skin pain, Skin tenderness, Skin swelling or Sores Neurological Reports: Weakness in extremities; Denies: Headache or General weakness Psychiatric Denies: Depression, Anxiety, Mood swings, Panic attacks, Change in sleep pattern or Hopelessness Endocrine Reports: Fatigue; Denies: Excessive urination or Excessive thirst Hematologic/Lymphatic Reports: Anemia and Easy bleeding; Denies: Easy bruising, Petechiae, Blood clots or Enlarged lymph nodes Allergic/Immunologic Denies: Hives, Throat swelling, Tongue swelling, Facial swelling or Wheezing Prior Level of Functionality: Independent of ADLs. Exam Constitutional abnormal general appearance (lethargic), distress noted (mild) and (respiratory), abnormal body habitus (overweight), no limitations and alert HENMT normocephalic and head/scalp atraumatic Eyes PERRL, EOMs intact bilaterally and conjunctivae normal Neck/C-Spine visual inspection normal, trachea midline and cervical spine nontender Chest inspection of chest normal and palpation of chest normal Respiratory breath sounds equal bilaterally, rales noted (base) and no use of accessory muscles Cardiovascular heart rate abnormal (tachycardic), rhythm abnormal (irregular) and no murmur Gastrointestinal abdomen normal to inspection, abdomen soft to palpation and nontender to palpation Genitourinary no CVA tenderness Back/Pelvis spine normal to inspection, thoracic spine tenderness noted and no lumbar spine tenderness Extremities normal to inspection, normal to palpation, no tenderness and full ROM Neurology no movement abnormality noted, no focal motor deficit noted and no sensory deficits noted Psychiatry mental status grossly normal, oriented x3, thought process normal and cooperative Skin skin color normal and no rash Conclusion/Plan Problem List (1) Acute hypoxic respiratory failure: Plan: Improving. Likely due to fluid overload in setting of known congestive heart failure. Patient takes 1 mg Bumex at home. Here, he has received 4 mg Bumex at this time. Emergency room physician spoke with the public health social worker on-call at [facility], and he recommended 3 mg IV Bumex. He has a Elder in place to monitor strict ins and outs. Will continue to trend. (2) Acute kidney injury superimposed on chronic kidney disease: Plan: Patient's creatinine worsening, potassium increasing. Spoke with public health social worker that the ED spoke with at [facility], Dr. Adams - he recommends another hyperkalemia cocktail, Bumex 2 mg, and transfer to a hospital with both nephrology and cardiology services for possible need for dialysis in setting of hypoperfusion with atrial flutter and EF of less than 20%. [facility] is full and he would require ICU there. Awaiting callback from Stevie Archer. Plan is to see a public health social worker outpatient, and he does have a referral already at home. He has made about 400 cc of urine since being here. Continue to trend. (3) Hyperkalemia: Plan: Likely due to chronic kidney disease. Received 2 doses of Lokelma, 2 doses of sodium bicarbonate, 2 doses of calcium gluconate. Has also received 4 mg of IV Bumex. There is another 3 mg IV Bumex he is going to receive tonight. Repeat BMP is ordered, pending. If repeat BMP still shows hyperkalemia, and patient does not have increased urine output, may still need to transfer to facility with nephrology. (4) Atrial fibrillation/flutter: Plan: Patient has a history of a atrial flutter according to patient. He is on Coumadin for this. He is also metoprolol twice daily. Will continue both these medications. (5) Chest wall contusion: Plan: Patient did have a fall at home, and fell on his left side. There is some left flank subcutaneous edema without underlying fracture. Continue to monitor. Qualifiers: Encounter type: initial encounter Laterality: left Qualified Code(s): S20.212A - Contusion of left front wall of thorax, initial encounter (6) Prostate cancer metastatic to bone: Plan: Continue home medication, Xtandi, as well as home pain regimen with oxycodone. (7) Heart failure with reduced ejection fraction: Plan: ECHO available to see by public health social worker at [facility], Dr. Aviles - EF of 20%. Patient's sister spoken with at bedside - awaiting to hear from Cardiology. Lab Results Lab results reviewed: Yes 12/07/24 07:26 12/07/24 17:48 Diagnostic Imaging Results Diagnostic Imaging Results: positive Final report reviewed EKG Results EKG Interpreted Independently: Yes
[2024-12-07] MEDS ORDERED: oxyCODONE 5 MG TABLET PO STA (14:51)
--- NOTE | 2024-12-07 15:06 | PHARMACY PROGRESS NOTE ---
Best Possible Medication History Admit Date and Time: 12/07/24 [id number] Home Medications Medication Instructions Recorded Confirmed Type allopurinol 300 mg tablet 300 mg PO DAILY 08/17/21 12/07/24 History tamsulosin 0.4 mg capsule 0.8 mg PO HS 08/17/21 12/07/24 History amlodipine 5 mg tablet 5 mg PO HS 12/07/24 12/07/24 History bumetanide 1 mg tablet 1 mg PO DAILY 12/07/24 12/07/24 History clonidine HCl 0.2 mg tablet 0.2 mg PO BID 12/07/24 12/07/24 History enzalutamide 40 mg capsule (Xtandi) 160 mg PO DAILY 12/07/24 12/07/24 History metoprolol succinate 25 mg 25 mg PO BID 12/07/24 12/07/24 History tablet,extended release 24 hr oxycodone 5 mg tablet 2.5 - 5 mg PO Q4HR PRN pain 12/07/24 12/07/24 History warfarin 2 mg tablet 4 mg PO DAILY 12/07/24 12/07/24 History Processed by: Pharmacy (Medication reconciliation completed by Armature BanderSamir) Medications reviewed in ED?: Yes Medication History completed: Yes Patient Interview: Pt unable to participate Secondary Source(s): Prescription bottles (of note: patient had bottles for both carvedilol 3.125mg bid and metoprolol succinate 25mg bid. Most recent is metoprolol per [facility] pharmacy) and Insurance records [facility] Statement: As the person ultimately responsible for medication therapy, providers are able to order a medication from an existing home medication list in [facility] via the "Reconcile Routine" prior to Confirmation of that medication by manufacturing support engineer. Such practice is discouraged except when the physician, in their clinical judgment, deems that a medical need exists for a medication without regard to previous use.
[2024-12-07] MEDS: oxyCODONE 5 MG TABLET PO STA (16:12)
[2024-12-07] MEDS: SODIUM CHLORIDE FLUSH 0.9% 10 ML SYRINGE IVP SCH (17:08)
[2024-12-07] MEDS: SODIUM BICARBONATE ABBOJECT 50 MEQ/50 ML SYRINGE IVP ONE ×2 (17:08→18:55)
[2024-12-07] MEDS: BUMETANIDE 1 MG/4 ML VIAL IVP ONE (17:08)
[2024-12-07 18:11] LABS: POTASSIUM 6.4 mmol/L (3.5-4.5)
[2024-12-07] MEDS: DEXTROSE 50% ABBOJECT 25 GM/50 ML SYRINGE IVP ONE (18:58)
[2024-12-07] MEDS ORDERED: ALBUTEROL NEB 2.5 MG/3 ML INH ONE (19:04)
[2024-12-07] MEDS: CONCENTRATED ALBUTEROL NEB 2.5 MG/0.5 ML INH STA (19:10)
--- NOTE | 2024-12-07 20:18 | PROVIDER PROGRESS NOTE ---
Progress Note Progress Note Progress Note: I spoke with Dr. Mleendez or waldemar Archer at about 1999. Related the information regarding the patient. He suggested I add on a lactate to the evening labs. Although looking at the patient's vital signs it is unlikely that he is going into shock. I have given the patient treatment for hyperkalemia. I will redraw labs in about an hour recheck and call Dr. Valdez back. This patient needs a potassium of 6 or under to be on the medical telemetry floor he is not sick enou gh to go to the intensive care unit at [place] but needs cardiology and nephrology services. Hopefully can get the potassium down enough to get him transferred.
[2024-12-07 21:13] LABS: CALCIUM 7.9 mg/dL (8.5-10.3); CREATININE 2.1 mg/dL (0.6-1.3); POTASSIUM 5.7 mmol/L (3.5-4.5)
[2024-12-07] MEDS: oxyCODONE 5 MG TABLET PO PRN (21:19)
[2024-12-07] MEDS: cloNIDine 0.1 MG TABLET PO SCH (21:20)
--- NOTE | 2024-12-07 21:39 | Discharge Summary ---
"Discharge Summary Admit Date: 12/07/24 Discharge Date: 12/07/24 Discharging Provider: Shoshana Pond PA-C Primary Care Provider: Yoandy Bailey Code Status: Attempt Resuscitation DIAGNOSES Discharge Diagnoses with Status of Each Condition: Acute hypoxic respiratory failure likely secondary to CHF exacerbation, being diuresed, on 4.5 L O2 acute renal failure, worsening Hyperkalemia, stable to improved Atrial fibrillation with RVR, treated Chest wall contusion, no rib fracture seen on imaging Prostate cancer metastatic to bone on Xtandi and oxycodone for chronic pain Heart failure with reduced ejection fraction. Echo available in [facility] [employer] [facility]. Reported to us as EF 20% Anemia of chronic disease most recently seen in our emergency department on 12/02/2024 with a hemoglobin of 6.5. Given 2 units of blood and discharged that day. At that time his potassium was elevated at 5.7 and his creatinine was 1.9 HPI History of Present Illness: Patient is a 69-year-old male with a history of heart failure with unknown ejection fraction, atrial flutter on Coumadin, chronic kidney disease with baseline of 1.9 who presented for dyspnea. Patient states that it has been happening gradually. He states he has been taking his Bumex as prescribed. He has not had an increase in his salt intake or his fluid intake. He does states a history of heart failure, but does not know what his ejection fraction is. He has an appointment to see truck unloader, but has not had the chance to see him yet. He has a history of chronic kidney disease. His creatinine is about his baseline. He also has a history of prostate cancer, and has some difficulty with urination and urinary retention. In the emergency room, patient's blood pressure was 136/102, he was saturating 88% on 2 to 3 L, and his heart rate was between 113-120. He was afebrile. EKG did show atrial flutter. Chest CT and abdominal/pelvis CT was done. Chest CT showed soft tissue edema overlying the lower left chest wall fracture, as well as extensive sclerotic osseous metastatic disease. He also had moderate pulmonary edema and small pleural effusions. He does not recall his last colonoscopy. He does have an extensive history of prostate cancer with mets to the bone. Of note, he was just here with a hemoglobin of 6.5 on 12/02/2024. He was given 2 units of blood. Today, he returns with a hemoglobin of 8.3. At that time, his potassium was elevated as well at 5.7, and his creatinine was 1.9. Today, his potassium is 6.6 and creatinine is 1.9. Thus far, he has received two 2 mg doses of Bumex, Lokelma, calcium gluconate, insulin and D50 with no improvement of his potassium. As such, I spoke with the emergency room, and they spoke with a truck unloader. He did not think that the patient required transfer at this time. He recommended 3 mg IV Bumex, as well as Lokelma, as well as to continue to trend the potassium. CONSULTS | PROCEDURES Consultations: Dr. Lopez, nephrology at [facility] Dr. Al Valdez, hospitalist @[facility] Hospital Course: 69-year-old male who presented to our emergency department with complaints of dyspnea and fluid overload. Past medical history of advanced prostate cancer, takes Xtandi and oxycodone for chronic pain. Has history of low hemoglobin. States he had a history of CHF and is allergic to Lasix but takes 1 mg of Bumex at home every day. He has been compliant with his medications. Further investigation reveals that he has an ejection fraction of 20%. Had previously been followed by cardiology at [place] Dr. Bailey. At presentation to the emergency department his potassium was 6.3 and his creatinine was 1.8 this is close to his baseline levels according to any past labs that are in our system his BNP was 4903. His vital signs were stable he was not hypotensive he was in atrial fibrillation with RVR. He has a history of atrial fibrillation and takes Coumadin for this. Admission INR 1.8 He was admitted to the floor at which point his potassium continue to rise to 6.6. His creatinine has risen to 2.0. He has been given a total of 9 mg of Bumex over approximately 14 hours and has had about 500 cc of urine output during this time. He has been given 3 doses of 10 mg each Lokelma has been given sodium bicarb as well. He is also been given 2 rounds of treatment with 10 units of insulin IVP, dextrose, and concentrated albuterol 20 mg inhaled. Also of note seen in our ED on 12/02/2024 for a fall downstairs. At that time his INR was 2.0. His hemoglobin was 6.5. His trauma workup was reportedly negative and he was transfused 1 unit of packed red blood cells. I spoke with Dr. Al manuel at [facility] at approximately 2000 on 12/07/2024. With his stable vital signs and lack of signs and symptoms of shock patient is not a candidate for the intensive care unit at [facility]. With his potassium of over 6.0 he cannot be on the telemetry floor. Therefore, at this time Dr. Valdez cannot accept the patient. After additional treatment including 3 doses of Lokelma and acute hyperkalemia protocol is potassium is down to 5.7. His creatinine is 2.1 and his lactic acid is 1.8. My colleague Dr. Shea had spoken with Dr. Lopez of nephrology at [facility]. He is willing to accept the patient in transfer to the ICU at [facility] but unfortunately there are no beds available at this time. Mr. Mckinney is on the waiting list for transfer to [facility] Given his appropriate lab values for transfer to telemetry at [facility] he will be emergently transferred to [facility] in [place] for additional consultations with nephrology and cardiology. Patient has full CODE STATUS. He will be transferred via ALS with cardiac monitoring.. ALLERGIES Allergies Allergy/AdvReac Type Severity Reaction Status Date / Time furosemide Allergy Mild tinnitis Verified 12/07/24 07:35 MEDICATIONS Ambulatory Orders Medication Instructions Recorded Confirmed allopurinol 300 mg tablet 300 mg PO DAILY 08/17/21 12/07/24 tamsulosin 0.4 mg capsule 0.8 mg PO HS 08/17/21 12/07/24 amlodipine 5 mg tablet 5 mg PO HS 12/07/24 12/07/24 bumetanide 1 mg tablet 1 mg PO DAILY 12/07/24 12/07/24 clonidine HCl 0.2 mg tablet 0.2 mg PO BID 12/07/24 12/07/24 enzalutamide 40 mg capsule (Xtandi) 160 mg PO DAILY 12/07/24 12/07/24 metoprolol succinate 25 mg 25 mg PO BID 12/07/24 12/07/24 tablet,extended release 24 hr oxycodone 5 mg tablet 2.5 - 5 mg PO Q4HR PRN pain 12/07/24 12/07/24 warfarin 2 mg tablet 4 mg PO DAILY 12/07/24 12/07/24 PHYSICAL EXAM AT DISCHARGE Physical Exam Other/Comments: Constitutional abnormal general appearance (lethargic), distress noted (mild) and (respiratory), abnormal body habitus (overweight), no limitations and alert HENMT normocephalic and head/scalp atraumatic Eyes PERRL, EOMs intact bilaterally and conjunctivae normal Neck/C-Spine visual inspection normal, trachea midline and cervical spine nontender Chest inspection of chest normal and palpation of chest normal Respiratory breath sounds equal bilaterally, rales noted (base) and no use of accessory muscles Cardiovascular heart rate abnormal (tachycardic), rhythm abnormal (irregular) and no murmur Gastrointestinal abdomen normal to inspection, abdomen soft to palpation and nontender to palpation Genitourinary no CVA tenderness Back/Pelvis spine normal to inspection, thoracic spine tenderness noted and no lumbar spine tenderness Extremities normal to inspection, normal to palpation, no tenderness and full ROM Neurology no movement abnormality noted, no focal motor deficit noted and no sensory deficits noted Psychiatry mental status grossly normal, oriented x3, thought process normal and cooperative Skin skin color normal and no rash LABS 12/07/24 07:26 12/07/24 20:47 TIME SPENT Time Spent in Discharge (Minutes): 55 Discharge Plan Discharge Patient Disposition: 02 Transfer Acute Care Hosp Condition: Stable Prescriptions: No Action tamsulosin 0.4 MG capsule 0.8 mg PO HS allopurinol 300 MG tablet 300 mg PO DAILY warfarin 2 mg tablet 4 mg PO DAILY Patient Comments: TAKE 5MG (2.5 TABLETS) BY MOUTH EVERY FRIDAY, TAKE 4MG (2 TABLETS) BY MOUTH EVERY OTHER DAY OR DIRECTED IN INR CALENDAR bumetanide 1 mg tablet 1 mg PO DAILY Patient Comments: TAKE 1 TABLET BY MOUTH ONCE DAILY metoprolol succinate 25 mg tablet extended release 24 hr 25 mg PO BID oxycodone 5 mg tablet 2.5 - 5 mg PO Q4HR PRN (Reason: pain) Patient Comments: TAKE 1/2 TO 1 (ONE-HALF TO ONE) TABLET BY MOUTH EVERY 4 HOURS NEEDED FOR SEVERE PAIN (CANCER RELATED PAIN) Xtandi 40 mg capsule 160 mg PO DAILY clonidine HCl 0.2 mg tablet 0.2 mg PO BID Patient Comments: TAKE 1 TABLET BY MOUTH TWICE DAILY amlodipine 5 mg tablet 5 mg PO HS Patient Comments: TAKE 1 TABLET BY MOUTH NIGHTLY Health Concerns: 69-year-old male who presented to our emergency department with complaints of dyspnea and fluid overload. Past medical history of advanced prostate cancer, takes Xtandi and oxycodone for chronic pain. Has history of low hemoglobin. States he had a history of CHF and is allergic to Lasix but takes 1 mg of Bumex at home every day. He has been compliant with his medications. Further investigation reveals that he has an ejection fraction of 20%. Had previously been followed by cardiology at [place] Dr. Bailey. At presentation to the emergency department his potassium was 6.3 and his creatinine was 1.8 this is close to his baseline levels according to any past labs that are in our system his BNP was 4903. His vital signs were stable he was not hypotensive he was in atrial fibrillation with RVR. He has a history of atrial fibrillation and takes Coumadin for this. Admission INR 1.8 He was admitted to the floor at which point his potassium continue to rise to 6.6. His creatinine has risen to 2.0. He has been given a total of 9 mg of Bumex over approximately 14 hours and has had about 500 cc of urine output during this time. He has been given 3 doses of 10 mg each Lokelma has been given sodium bicarb as well. He is also been given 2 rounds of treatment with 10 units of insulin IVP, dextrose, and concentrated albuterol 20 mg inhaled. Also of note seen in our ED on 12/02/2024 for a fall downstairs. At that time his INR was 2.0. His hemoglobin was 6.5. His trauma workup was reportedly negative and he was transfused 1 unit of packed red blood cells. I spoke with Dr. Melendez or at [facility] at approximately 2000 on 12/07/2024. With his stable vital signs and lack of signs and symptoms of shock patient is not a candidate for the intensive care unit at [facility]. With his potassium of over 6.0 he cannot be on the telemetry floor. Therefore, at this time Dr. Valdez cannot accept the patient. My colleague Dr. Shea had spoken with Dr. Lopez of nephrology at [facility]. He is willing to accept the patient in transfer to the ICU at [facility] but unfortunately there are no beds available at this time. Mr. Mckinney is on the waiting list for transfer to [facility]. . Print Language: Cook Islander"
[2024-12-07] MEDS: SODIUM ZIRCONIUM CYCLOSILICATE 5 GM PACKET PO SCH (21:54)
[2024-12-07] MEDS ORDERED: SODIUM ZIRCONIUM CYCLOSILICATE 5 GM PACKET PO SCH (22:00)
[2024-12-08] MEDS: ACETAMINOPHEN 325 MG TABLET PO PRN (00:45)
[2024-12-08 05:52] LABS: HCT - HEMATOCRIT 26.4 % (42.0-52.0); HGB - HEMOGLOBIN 7.8 g/dL (14.0-18.0); MEAN CORPUSCULAR HEMOGLOBIN 30.7 pg (27.0-31.0); MEAN CORPUSCULAR HGB CONC 29.5 g/dL (32.0-36.0); MEAN CORPUSCULAR VOLUME 103.9 fL (80.0-94.0); MEAN PLATELET VOLUME 9.6 fL (7.4-11.4); RED BLOOD COUNT 2.54 10^6/uL (4.70-6.10); RED CELL DISTRIBUTION WIDTH 21.2 % (12.0-15.0); WHITE BLOOD COUNT 6.3 x10^3/uL (4.8-10.8)
[2024-12-08 06:12] LABS: CALCIUM 7.7 mg/dL (8.5-10.3); CREATININE 2.1 mg/dL (0.6-1.3); MAGNESIUM 1.9 mg/dL (1.7-2.3); POTASSIUM 5.7 mmol/L (3.5-4.5)
[2024-12-08] MEDS: WARFARIN 1 MG TABLET PO SCH (08:11)
[2024-12-08] MEDS: allopurinoL 100 MG TABLET PO SCH (08:11)
[2024-12-08] MEDS: TAMSULOSIN 0.4 MG CAPSULE PO SCH (08:11)
[2024-12-08] MEDS: XTANDI 40 MG PO SCH (08:12)
[2024-12-08] MEDS: BUMETANIDE 1 MG/4 ML VIAL IVP SCH (08:12)
[2024-12-08] MEDS: METOPROLOL TARTRATE 25 MG TABLET PO STA (08:54)
--- NOTE | 2024-12-08 09:13 | PROVIDER PROGRESS NOTE ---
Subjective Subjective Subjective: This morning, patient is very weak, lethargic. He states he is very fatigued. He appears very pale. He states his breathing is better than yesterday, but is still labored at times. He does not have any chest pain, palpitations. He has a long history of atrial flutter. His ventricular rate continues to be high at 120-130. I spoke with mother at bedside about transfer to the intensive care unit for amiodarone for rate control while we wait on transfer process to happen. Yesterday evening, transfer process was initiated for higher level of care. Patient has an ejection fraction less than 20%, and yesterday, was not making much urine. He should be at a facility with nephrology and cardiology in case of deterioration. Extensive conversation was had with general surgery physician assistant at [facility], Dr. Lopez; he recommended continued Bumex until bed was available. He was agreeable to transfer to [facility], but placed him on a waiting list. I then spoke with Stevie Parada accepted the patient to their [facility] telemetry floor. Again, they are waiting for a bed to open up. I spoke with them again this morning 12/08, and they stated that it would likely happen later today. Current Medications Current Medications Current Medications: Current Medications Generic Name Dose Route Start Last Admin Trade Name Freq PRN Reason Stop Dose Admin Acetaminophen 650 mg 12/07/24 16:22 12/08/24 00:45 Acetaminophen 325 Mg Tablet PO 650 mg Q4HR PRN Administration Pain 1 to 4, or Fever Allopurinol 300 mg 12/08/24 09:00 12/08/24 08:11 Allopurinol 100 Mg Tablet PO 300 mg DAILY ROHAN Administration Bumetanide 2 mg 12/08/24 09:00 12/08/24 08:12 Bumetanide 1 Mg/4 Ml Vial IVP 2 mg BID ROHAN Administration Clonidine HCl 0.2 mg 12/07/24 21:00 12/08/24 08:11 Clonidine 0.1 Mg Tablet PO 0.2 mg BID ROHAN Administration Metoprolol Succinate 25 mg 12/07/24 21:00 12/08/24 08:11 Metoprolol Succinate 25 Mg Tablet PO 25 mg BID ROHAN Administration Oxycodone HCl 5 mg 12/07/24 16:22 12/08/24 08:57 Oxycodone 5 Mg Tablet PO 5 mg Q4HR PRN Administration Pain 5 to 7 Enzalutamide [Xtandi 4 each 12/08/24 09:00 12/08/24 08:12 ] 40 Mg Capsule PO Not Given DAILY [facility] Sodium Chloride 10 ml 12/07/24 16:22 Sodium Chloride Flush 0.9% 10 Ml Syringe IVP PRN PRN NEEDED PER PROVIDER ORDERS Sodium Chloride 10 ml 12/07/24 17:00 12/08/24 08:11 Sodium Chloride Flush 0.9% 10 Ml Syringe IVP 10 ml 0100,0900,1700 ROHAN Administration Sodium Zirconium Cyclosilicate 10 gm 12/07/24 18:20 12/08/24 06:44 Sodium Zirconium Cyclosilicate 5 Gm Packet PO 10 gm TID ROHAN Administration Tamsulosin HCl 0.4 mg 12/08/24 09:00 12/08/24 08:11 Tamsulosin 0.4 Mg Capsule PO 0.4 mg DAILY ORHAN Administration Warfarin Sodium 4 mg 12/08/24 09:00 12/08/24 08:11 Warfarin 1 Mg Tablet PO 4 mg DAILY ROHAN Administration Objective Vital Signs/Intake & Output Reviewed Vital Signs: Yes Vital Signs: Vital Signs x48h Temp Pulse Pulse Resp BP BP Pulse Ox 12/08/24 08:54 126 H 139/94 H 12/08/24 07:52 97.7 F 126 H 24 129/85 95 12/08/24 05:00 97.9 F 130 H 18 141/96 H 95 O2 Flow Rate 12/08/24 08:54 12/08/24 07:52 0 12/08/24 05:00 Intake & Output: Intake & Output 12/05/24 12/06/24 12/07/24 12/08/24 23:59 23:59 23:59 23:59 Intake Total 730 / 730 550 / 550 Output Total 1000 / 1000 950 / 950 Balance -270 / -270 -400 / -400 Weight (kg) 143 kg Objective General Appearance: positive Mild distress, Anxious and Lethargic Eyes Bilateral: positive Normal inspection, PERRL and EOMI ENT: positive ENT inspection nml, Pharynx nml and Dry mucous membranes Neck: positive Nml inspection, Thyroid nml and No JVD Respiratory: positive Chest non-tender, No respiratory distress, Breath sounds nml and Rales (bibasilar rales, diminished lung sounds); negative Wheezes or Rhonchi Cardiovascular: positive No murmur, Irregularly irregular and Tachycardia Abdomen: positive Non-tender and No distention; negative Rebound, Splenomegaly or Mass Back: positive Nml inspection; negative CVA tenderness (R) or CVA tenderness (L) Skin: positive Color nml, No rash, Dry and Pallor Extremities: positive Non-tender and Pedal edema (3+, mildly improved from yesterday) Neurologic/Psychiatric: positive Oriented x3, CN's nml (2-12), Motor nml and Mood/affect nml Lab Results 12/08/24 05:03 12/08/24 05:03 Other Labs: Lab Results x24hrs 12/08/24 12/07/24 12/07/24 Range/Units 05:03 21:08 20:47 WBC 6.3 (4.8-10.8) x10^3/uL RBC 2.54 L (4.70-6.10) 10^6/uL Hgb 7.8 L (14.0-18.0) g/dL Hct 26.4 L (42.0-52.0) % MCV 103.9 H (80.0-94.0) fL MCH 30.7 (27.0-31.0) pg MCHC 29.5 L (32.0-36.0) g/dL RDW 21.2 H (12.0-15.0) % Plt Count 221 (130-450) 10^3/uL MPV 9.6 (7.4-11.4) fL Sodium 141 142 (135-145) mmol/L Potassium 5.7 H 5.7 H (3.5-4.5) mmol/L Chloride 111 110 (101-111) mmol/L Carbon Dioxide 20 L 20 L (21-32) mmol/L Anion Gap 10.0 12.0 (6-13) BUN 55 H 56 H (6-20) mg/dL Creatinine 2.1 H 2.1 H (0.6-1.3) mg/dL Estimated GFR (MDRD) 31 L 31 L (>89) Glucose 108 H 91 (74-104) mg/dL POC Whole Bld Glucose (70-100) mg/dL Lactic Acid 1.8 (0.5-2.2) mmol/L Calcium 7.7 L 7.9 L (8.5-10.3) mg/dL Magnesium 1.9 (1.7-2.3) mg/dL Nasal Adenovirus (PCR) Nasal B. parapertussis DNA (PCR) Nasal Coronavir 229E PCR Nasal Coronavir HKU1 PCR Nasal Coronavir NL63 PCR Nasal Coronavir OC43 PCR Nasal Enterovir/Rhinovir PCR Nasal Influenza B PCR Nasal Influenza A PCR Nasal Parainfluen 1 PCR Nasal Parainfluen 2 PCR Nasal Parainfluen 3 PCR Nasal Parainfluen 4 PCR Nasal RSV (PCR) Nasal B.pertussis DNA PCR Nasal C.pneumoniae (PCR) Robert Human Metapneumo PCR Nasal M.pneumoniae (PCR) Nasal SARS-CoV-2 (PCR) 12/07/24 12/07/24 12/07/24 Range/Units 17:48 13:12 12:15 WBC (4.8-10.8) x10^3/uL RBC (4.70-6.10) 10^6/uL Hgb (14.0-18.0) g/dL Hct (42.0-52.0) % MCV (80.0-94.0) fL MCH (27.0-31.0) pg MCHC (32.0-36.0) g/dL RDW (12.0-15.0) % Plt Count (130-450) 10^3/uL MPV (7.4-11.4) fL Sodium 140 138 (135-145) mmol/L Potassium 6.4 H* 6.6 H* (3.5-4.5) mmol/L Chloride 110 111 (101-111) mmol/L Carbon Dioxide 19 L 18 L (21-32) mmol/L Anion Gap 11.0 9.0 (6-13) BUN 51 H 53 H (6-20) mg/dL Creatinine 2.0 H 1.9 H (0.6-1.3) mg/dL Estimated GFR (MDRD) 33 L 35 L (>89) Glucose 153 H 204 H (74-104) mg/dL POC Whole Bld Glucose 151 (70-100) mg/dL Lactic Acid (0.5-2.2) mmol/L Calcium 8.0 L 8.3 L (8.5-10.3) mg/dL Magnesium (1.7-2.3) mg/dL Nasal Adenovirus (PCR) Nasal B. parapertussis DNA (PCR) Nasal Coronavir 229E PCR Nasal Coronavir HKU1 PCR Nasal Coronavir NL63 PCR Nasal Coronavir OC43 PCR Nasal Enterovir/Rhinovir PCR Nasal Influenza B PCR Nasal Influenza A PCR Nasal Parainfluen 1 PCR Nasal Parainfluen 2 PCR Nasal Parainfluen 3 PCR Nasal Parainfluen 4 PCR Nasal RSV (PCR) Nasal B.pertussis DNA PCR Nasal C.pneumoniae (PCR) Robert Human Metapneumo PCR Nasal M.pneumoniae (PCR) Nasal SARS-CoV-2 (PCR) 12/07/24 12/07/24 Range/Units 11:15 08:10 WBC (4.8-10.8) x10^3/uL RBC (4.70-6.10) 10^6/uL Hgb (14.0-18.0) g/dL Hct (42.0-52.0) % MCV (80.0-94.0) fL MCH (27.0-31.0) pg MCHC (32.0-36.0) g/dL RDW (12.0-15.0) % Plt Count (130-450) 10^3/uL MPV (7.4-11.4) fL Sodium 140 (135-145) mmol/L Potassium 6.6 H* (3.5-4.5) mmol/L Chloride 113 H (101-111) mmol/L Carbon Dioxide 19 L (21-32) mmol/L Anion Gap 8.0 (6-13) BUN 53 H (6-20) mg/dL Creatinine 1.9 H (0.6-1.3) mg/dL Estimated GFR (MDRD) 35 L (>89) Glucose 146 H (74-104) mg/dL POC Whole Bld Glucose (70-100) mg/dL Lactic Acid (0.5-2.2) mmol/L Calcium 8.4 L (8.5-10.3) mg/dL Magnesium 1.9 (1.7-2.3) mg/dL Nasal Adenovirus (PCR) NOT DETECTED Nasal B. parapertussis DNA (PCR) NOT DETECTED Nasal Coronavir 229E PCR NOT DETECTED Nasal Coronavir HKU1 PCR NOT DETECTED Nasal Coronavir NL63 PCR NOT DETECTED Nasal Coronavir OC43 PCR NOT DETECTED Nasal Enterovir/Rhinovir PCR NOT DETECTED Nasal Influenza B PCR NOT DETECTED Nasal Influenza A PCR NOT DETECTED Nasal Parainfluen 1 PCR NOT DETECTED Nasal Parainfluen 2 PCR NOT DETECTED Nasal Parainfluen 3 PCR NOT DETECTED Nasal Parainfluen 4 PCR NOT DETECTED Nasal RSV (PCR) NOT DETECTED Nasal B.pertussis DNA PCR NOT DETECTED Nasal C.pneumoniae (PCR) NOT DETECTED Robert Human Metapneumo PCR NOT DETECTED Nasal M.pneumoniae (PCR) NOT DETECTED Nasal SARS-CoV-2 (PCR) NOT DETECTED Diagnostic Imaging Diagnostic Imaging Results: positive Final report reviewed Assessment/Plan Problem List (1) Atrial flutter with rapid ventricular response: Impression: Patient has a long history of atrial flutter. Takes metoprolol at home, which we have continued. However, he has continued to be uncontrolled with heart rate of 120s to 130s. Will start amiodarone drip. Concern for worsening of heart failure with ejection fraction less than 20% with esmolol or Cardizem drip. Patient is adequately anticoagulated with Coumadin at this time. Again, working on transfer process to transfer patient to a higher level of care with nephrology and cardiology present. (2) Acute hypoxic respiratory failure: Impression: Resolved. Continue Bumex 2 mg IV twice daily. (3) Acute kidney injury superimposed on chronic kidney disease: Impression: Creatinine level stable. Patient did end up putting out about 1 L of urine overnight. Continue to monitor closely, maintain Elder catheter, strict ins and outs, fluid restriction. (4) Hyperkalemia: Impression: Patient received 3 hyperkalemia cocktails yesterday: Insulin, D50, sodium bicarb, Lokelma 3 times daily. Potassium went from 6.3 to 6.6 to 5.7, and has been stable there. Will recheck at 2 PM. Will continue to treat as appropriate. (5) Chest wall contusion: Impression: Patient did have a fall at home, and fell on his left side. There is some left flank subcutaneous edema without underlying fracture. Continue to monitor. Qualifiers: Encounter type: initial encounter Laterality: left Qualified Code(s): S20.212A - Contusion of left front wall of thorax, initial encounter (6) Prostate cancer metastatic to bone: Impression: Continue home medication, Xtandi, as well as home pain regimen with oxycodone. (7) Heart failure with reduced ejection fraction: Impression: ECHO available to see by general surgery physician assistant at [facility], Dr. Aviles - EF of 20%. Patient's sister spoken with at bedside - awaiting to hear from Cardiology.
[2024-12-08] MEDS: AMIODARONE 150 MG/100 ML 100 ML IV ONE (11:38)
[2024-12-08] MEDS: AMIODARONE 360 MG/200 ML 200 ML IV ONE (11:52)
[2024-12-08 13:42] LABS: CALCIUM 7.6 mg/dL (8.5-10.3); CREATININE 2.2 mg/dL (0.6-1.3); POTASSIUM 5.7 mmol/L (3.5-4.5)
[2024-12-08] MEDS: CALCIUM GLUC 1,000MG/50ML-NACL 1,000 MG/50 ML BAG IV ONE (14:20)
[2024-12-08] MEDS: SODIUM BICARBONATE ABBOJECT 50 MEQ/50 ML SYRINGE IVP ONE (14:21)
[2024-12-08] MEDS: DEXTROSE 50% ABBOJECT 25 GM/50 ML SYRINGE IVP ONE (14:21)
[2024-12-08] MEDS: INSULIN REGULAR, HUMAN 300 UNIT/3 ML PEN IVP ONE (14:21)
[2024-12-08] MEDS: ONDANSETRON 4 MG/2 ML VIAL IVP PRN (15:58)
[2024-12-08] MEDS: AMIODARONE 360 MG/200 ML 200 ML IV SCH (17:10)
[2024-12-08] MEDS: SODIUM CHLORIDE FLUSH 0.9% 10 ML SYRINGE IVP PRN (17:13)
[2024-12-08 18:33] LABS: CALCIUM 7.5 mg/dL (8.5-10.3); CREATININE 2.2 mg/dL (0.6-1.3); POTASSIUM 4.8 mmol/L (3.5-4.5)
[2024-12-09 05:02] LABS: HCT - HEMATOCRIT 25.4 % (42.0-52.0); HGB - HEMOGLOBIN 7.6 g/dL (14.0-18.0); MEAN CORPUSCULAR HGB CONC 29.9 g/dL (32.0-36.0); MEAN CORPUSCULAR VOLUME 103.7 fL (80.0-94.0); MEAN PLATELET VOLUME 9.5 fL (7.4-11.4); RED BLOOD COUNT 2.45 10^6/uL (4.70-6.10); RED CELL DISTRIBUTION WIDTH 21.3 % (12.0-15.0); WHITE BLOOD COUNT 5.8 x10^3/uL (4.8-10.8)
[2024-12-09 05:08] LABS: INR 1.9 (0.8-1.2); PT - PROTHROMBIN TIME 19.7 secs (9.9-12.6)
[2024-12-09 05:20] LABS: CALCIUM 7.5 mg/dL (8.5-10.3); CREATININE 2.3 mg/dL (0.6-1.3); POTASSIUM 4.8 mmol/L (3.5-4.5)
[2024-12-09] MEDS: ZINC OXIDE 20% OINT 30 GM TUBE TOP PRN (05:56)
--- NOTE | 2024-12-09 09:03 | PROVIDER PROGRESS NOTE ---
Subjective Subjective Subjective: This morning, patient is very weak, lethargic. He states he is very fatigued. He appears very pale. He states his breathing is better than yesterday, but is still labored at times. He does not have any chest pain, palpitations. He has a history of atrial flutter. His ventricular rate continues to be high at 120- 130. I spoke with mother at bedside yesterday about transfer to the intensive care unit for amiodarone for rate control while we wait on transfer process to happen. Continues to be in atrial flutter with 2-1 block with RVR. He has been on amiodarone drip without much success. He likely needs cardioversion, possibly PEPPER cardioversion as is unclear has been compliant with his Coumadin. I did speak with both Jennifer and Stevie this morning; he is at the top of both of their wait list, awaiting callback. Current Medications Current Medications Current Medications: Current Medications Generic Name Dose Route Start Last Admin Trade Name Freq PRN Reason Stop Dose Admin Acetaminophen 650 mg 12/07/24 16:22 12/08/24 00:45 Acetaminophen 325 Mg Tablet PO 650 mg Q4HR PRN Administration Pain 1 to 4, or Fever Al Hydroxide/Mg Hydroxide 30 ml 12/09/24 08:34 Mag Hydrox/Al Hydrox/Simeth 30 Ml Udc PO Q4HR PRN INDIGESTION Allopurinol 300 mg 12/08/24 09:00 12/09/24 08:16 Allopurinol 100 Mg Tablet PO 300 mg DAILY ROHAN Administration Bumetanide 2 mg 12/08/24 09:00 12/09/24 08:15 Bumetanide 1 Mg/4 Ml Vial IVP 2 mg BID ROHAN Administration Clonidine HCl 0.2 mg 12/07/24 21:00 12/09/24 08:16 Clonidine 0.1 Mg Tablet PO 0.2 mg BID ROHAN Administration Amiodarone HCl/Dextrose 200 mls @ 16.667 mls/hr 12/08/24 16:30 12/09/24 05:57 Nexterone 360 Mg/200 Ml IV 0.5 mg/min .Q12H ROHAN 16.67 mls/hr Administration 0.5 MG/MIN Metoprolol Succinate 25 mg 12/07/24 21:00 12/09/24 08:16 Metoprolol Succinate 25 Mg Tablet PO 25 mg BID ROHAN Administration Multi-Ingredient Ointment 1 applic 12/09/24 05:35 12/09/24 05:56 Zinc Oxide 20% Oint 30 Gm Tube TOP 1 applic PRN PRN Administration Skin Care Ondansetron HCl 4 mg 12/08/24 14:25 12/09/24 07:50 Ondansetron 4 Mg/2 Ml Vial IVP 4 mg Q6HR PRN Administration Nausea / Vomiting Oxycodone HCl 5 mg 12/07/24 16:22 12/09/24 07:49 Oxycodone 5 Mg Tablet PO 5 mg Q4HR PRN Administration Pain 5 to 7 (Xtandi 40 Mg Tab) 4 each 12/08/24 09:00 12/09/24 08:16 PO 4 each DAILY ROHAN Administration Sodium Chloride 10 ml 12/07/24 16:22 12/08/24 17:13 Sodium Chloride Flush 0.9% 10 Ml Syringe IVP 10 ml PRN PRN Administration NEEDED PER PROVIDER ORDERS Sodium Chloride 10 ml 12/07/24 17:00 12/09/24 08:16 Sodium Chloride Flush 0.9% 10 Ml Syringe IVP 10 ml 0100,0900,1700 ROHAN Administration Sodium Zirconium Cyclosilicate 10 gm 12/07/24 18:20 12/09/24 05:56 Sodium Zirconium Cyclosilicate 5 Gm Packet PO 10 gm TID ROHAN Administration Tamsulosin HCl 0.4 mg 12/08/24 09:00 12/09/24 08:15 Tamsulosin 0.4 Mg Capsule PO 0.4 mg DAILY ROHAN Administration Warfarin Sodium 4 mg 12/08/24 09:00 12/09/24 08:16 Warfarin 1 Mg Tablet PO 4 mg DAILY ROHAN Administration Objective Vital Signs/Intake & Output Reviewed Vital Signs: Yes Vital Signs: Vital Signs x48h Temp Pulse Resp BP Pulse Ox O2 Flow Rate 12/09/24 08:00 97.7 F 125 H 15 122/92 H 95 1 12/09/24 07:00 126 H 15 121/90 96 1 12/09/24 06:00 126 H 14 115/90 97 1 12/09/24 05:00 97.5 F L 126 H 11 L 97/71 96 1 12/09/24 04:00 124 H 14 98/78 96 1 12/09/24 03:00 124 H 13 100/76 96 1 12/09/24 02:00 124 H 14 105/77 97 1 12/09/24 01:00 123 H 14 92/71 96 1 Intake & Output: Intake & Output 12/06/24 12/07/24 12/08/24 12/09/24 23:59 23:59 23:59 23:59 Intake Total 730 / 730 1340 / 1340 650 / 650 Output Total 1000 / 1000 2359 / 2359 568 / 568 Balance -270 / -270 -1019 / -1019 82 / 82 Weight (kg) 143 kg Objective General Appearance: positive Mild distress, Anxious and Lethargic Eyes Bilateral: positive Normal inspection, PERRL and EOMI ENT: positive ENT inspection nml, Pharynx nml and Dry mucous membranes Neck: positive Nml inspection, Thyroid nml and No JVD Respiratory: positive Chest non-tender, No respiratory distress, Breath sounds nml and Rales (bibasilar rales, diminished lung sounds); negative Wheezes or Rhonchi Cardiovascular: positive No murmur, Irregularly irregular and Tachycardia Abdomen: positive Non-tender and No distention; negative Rebound, Splenomegaly or Mass Back: positive Nml inspection; negative CVA tenderness (R) or CVA tenderness (L) Skin: positive Color nml, No rash, Dry and Pallor Extremities: positive Non-tender and Pedal edema (3+, mildly improved from yesterday) Neurologic/Psychiatric: positive Oriented x3, CN's nml (2-12), Motor nml and Mood/affect nml Lab Results 12/09/24 04:53 12/09/24 04:53 Other Labs: Lab Results x24hrs 12/09/24 12/08/24 12/08/24 Range/Units 04:53 18:10 13:23 WBC 5.8 (4.8-10.8) x10^3/uL RBC 2.45 L (4.70-6.10) 10^6/uL Hgb 7.6 L (14.0-18.0) g/dL Hct 25.4 L (42.0-52.0) % MCV 103.7 H (80.0-94.0) fL MCH 31.0 (27.0-31.0) pg MCHC 29.9 L (32.0-36.0) g/dL RDW 21.3 H (12.0-15.0) % Plt Count 201 (130-450) 10^3/uL MPV 9.5 (7.4-11.4) fL PT 19.7 H (9.9-12.6) secs INR 1.9 H (0.8-1.2) Sodium 141 138 140 (135-145) mmol/L Potassium 4.8 H 4.8 H 5.7 H (3.5-4.5) mmol/L Chloride 109 111 109 (101-111) mmol/L Carbon Dioxide 21 23 24 (21-32) mmol/L Anion Gap 11.0 4.0 L 7.0 (6-13) BUN 58 H 58 H 59 H (6-20) mg/dL Creatinine 2.3 H 2.2 H 2.2 H (0.6-1.3) mg/dL Estimated GFR (MDRD) 28 L 30 L 30 L (>89) Glucose 109 H 126 H 119 H (74-104) mg/dL Calcium 7.5 L 7.5 L 7.6 L (8.5-10.3) mg/dL Nasal Screen MRSA (PCR) (NEGATIVE) 12/08/24 Range/Units 10:05 WBC (4.8-10.8) x10^3/uL RBC (4.70-6.10) 10^6/uL Hgb (14.0-18.0) g/dL Hct (42.0-52.0) % MCV (80.0-94.0) fL MCH (27.0-31.0) pg MCHC (32.0-36.0) g/dL RDW (12.0-15.0) % Plt Count (130-450) 10^3/uL MPV (7.4-11.4) fL PT (9.9-12.6) secs INR (0.8-1.2) Sodium (135-145) mmol/L Potassium (3.5-4.5) mmol/L Chloride (101-111) mmol/L Carbon Dioxide (21-32) mmol/L Anion Gap (6-13) BUN (6-20) mg/dL Creatinine (0.6-1.3) mg/dL Estimated GFR (MDRD) (>89) Glucose (74-104) mg/dL Calcium (8.5-10.3) mg/dL Nasal Screen MRSA (PCR) NEGATIVE (NEGATIVE) Diagnostic Imaging Diagnostic Imaging Results: positive Final report reviewed Assessment/Plan Problem List (1) Atrial flutter with rapid ventricular response: Impression: Patient has a history of atrial flutter. Takes metoprolol at home, which we have continued. However, he has continued to be uncontrolled with heart rate of 120s to 130s. Amiodarone drip was started yesterday. Still remains in atrial flutter with 2:1 block. Concern for worsening of heart failure with ejection fraction less than 20% with esmolol or Cardizem drip. Patient is anticoagulated with Coumadin at this time. He has been on amiodarone drip without much success. He likely needs cardioversion, possibly PEPPER cardioversion as is unclear has been compliant with his Coumadin. Again, working on transfer process to transfer patient to a higher level of care with nephrology and cardiology, as well as EP, present. (2) Acute hypoxic respiratory failure: Impression: Resolved. Continue Bumex 2 mg IV twice daily at this time. With this tachycardia, may be hard to diurese him. (3) Acute kidney injury superimposed on chronic kidney disease: Impression: Creatinine level steadily increasing, likely cardiorenal syndrome. Patient with increasing urine output. Continue to monitor closely, maintain Elder catheter, strict ins and outs, fluid restriction. (4) Hyperkalemia: Impression: Patient received 3 hyperkalemia cocktails on admission: Insulin, D50, sodium bicarb, Lokelma 3 times daily. Potassium went from 6.3 to 6.6 to 5.7, and has been stable there. Continue Lokelma TID at this time. Will continue to treat as appropriate. (5) Chest wall contusion: Impression: Patient did have a fall at home, and fell on his left side. There is some left flank subcutaneous edema without underlying fracture. Continue to monitor. Qualifiers: Encounter type: initial encounter Laterality: left Qualified Code(s): S20.212A - Contusion of left front wall of thorax, initial encounter (6) Prostate cancer metastatic to bone: Impression: Continue home medication, Xtandi, as well as home pain regimen with oxycodone. (7) Heart failure with reduced ejection fraction: Impression: ECHO available to see by process design chemical engineer at [facility], Dr. Aviles - EF of less than 20%.
[2024-12-09] MEDS: MAG HYDROX/AL HYDROX/SIMETH 30 ML UDC PO PRN (09:41)
--- NOTE | 2024-12-09 14:47 | Discharge Summary ---
"Discharge Summary Admit Date: 12/07/24 Discharge Date: 12/09/24 Discharging Provider: Dr. Rebecca Christian Code Status: Attempt Resuscitation Discharge Facility Name: Transfer to 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 Likely will need cardioversion, possible PEPPER cardioversion is unclear compliance with Coumadin. Transferring to [facility] where there is cardiology, electrophysiology. Acute hypoxic respiratory failureresolved. Patient currently on room air. Continue Bumex 2 mg IV twice daily. Acute kidney injury on chronic kidney diseasecreatinine steadily increasing, likely cardiorenal syndrome. Urine output has been good. Maintain Elder catheter, strict ins and outs. Hyperkalemiareceived multiple hyperkalemia cocktail's, continue Lokelma. Recommend nephrology consult once at [facility]. Chest wall contusionpatient did have a fall at home. CT showed left flank subcutaneous edema without underlying fracture. Continue to monitor. Prostate cancer metastatic to the bonecontinue home medication, Xtandi as well as home pain regimen with oxycodone. They would like to set up new oncologist upon discharge at [place]. Recommend oncology consult. Anemia is likely due to bone marrow infiltration of the cancer as patient has known metastasis to the bone. Heart failure with reduced ejection fractiondo not have records here. When I spoke with recruiter account manager at [facility], Dr. Lopez, he was able to see the echo, and stated that he has an EF of less than 20%. Will need very close follow-up with cardiology when discharged. HPI History of Present Illness: Patient is a 69-year-old male with a history of heart failure with unknown ejection fraction, atrial flutter on Coumadin, chronic kidney disease with baseline of 1.9 who presented for dyspnea. Patient states that it has been happening gradually. He states he has been taking his Bumex as prescribed. He has not had an increase in his salt intake or his fluid intake. He does states a history of heart failure, but does not know what his ejection fraction is. He has an appointment to see recruiter account manager, but has not had the chance to see him yet. He has a history of chronic kidney disease. His creatinine is about his baseline. He also has a history of prostate cancer, and has some difficulty with urination and urinary retention. In the emergency room, patient's blood pressure was 136/102, he was saturating 88% on 2 to 3 L, and his heart rate was between 113-120. He was afebrile. EKG did show atrial flutter. Chest CT and abdominal/pelvis CT was done. Chest CT showed soft tissue edema overlying the lower left chest wall fracture, as well as extensive sclerotic osseous metastatic disease. He also had moderate pulmonary edema and small pleural effusions. He does not recall his last colonoscopy. He does have an extensive history of prostate cancer with mets to the bone. Of note, he was just here with a hemoglobin of 6.5 on 12/02/2024. He was given 2 units of blood. Today, he returns with a hemoglobin of 8.3. At that time, his potassium was elevated as well at 5.7, and his creatinine was 1.9. Today, his potassium is 6.6 and creatinine is 1.9. Thus far, he has received two 2 mg doses of Bumex, Lokelma, calcium gluconate, insulin and D50 with no improvement of his potassium. As such, I spoke with the emergency room, and they spoke with a recruiter account manager. He did not think that the patient required transfer at this time. He recommended 3 mg IV Bumex, as well as Lokelma, as well as to continue to trend the potassium. CONSULTS | PROCEDURES Consultations: Nephrology, Dr. Adams at [facility]; hospitalist, medical reception, chef french at Procedures: Chest x-ray, chest CT, abdomen/pelvis CT HOSPITAL COURSE Hospital Course: Patient is a 69-year-old male with history of heart failure with EF of less than 20%, atrial flutter on Coumadin, chronic kidney disease with baseline of 1.9 who presented for dyspnea. He was requiring 3 to 4 L of oxygen when he first got here. Lab work was notable for an acute kidney injury on chronic kidney disease, as well as profound hypokalemia with potassium as high as 6.7. Initially, this was not responsive to medical management. We gave him a few hyperkalemia cocktails, scheduled Lokelma, as well as continued high dose of Bumex with some improvement of the potassium. He did start to make more urine. However, the whole time, he remained in atrial flutter with a 2-1 AV block. We trialed amiodarone bolus and drip, without success. Initially, recruiter account manager at [facility] was spoken with, as this is the recruiter account manager that the emergency room physician spoke with initially for possible transfer. He wanted transfer to an intensive care unit for ongoing monitoring of his hyperkalemia, and possible need for dialysis. Unfortunately, they do not have any beds. In the interim, I did speak with [facility] as well. They were more optimistic about their bed situation, including a cardiac telemetry bed. Plan is to transfer patient to [facility]. He has atrial flutter; he will likely need either cardioversion or an ablation. He has been pretty compliant with his Coumadin, which his states he is been taking for 3 years, so he is appropriately anticoagulated. He also need to follow-up with nephrology here for his worsening creatinine, resistant hyperkalemia. Additionally, his like him to set up oncology services at [place] as well. Once a bed was available, plan was made to transfer him. Patient's is at bedside, and she was updated. ALLERGIES Allergies Allergy/AdvReac Type Severity Reaction Status Date / Time furosemide Allergy Mild tinnitis Verified 12/07/24 07:35 MEDICATIONS Ambulatory Orders Medication Instructions Recorded Confirmed allopurinol 300 mg tablet 300 mg PO DAILY 08/17/21 12/07/24 tamsulosin 0.4 mg capsule 0.8 mg PO HS 08/17/21 12/07/24 amlodipine 5 mg tablet 5 mg PO HS 12/07/24 12/07/24 bumetanide 1 mg tablet 1 mg PO DAILY 12/07/24 12/07/24 clonidine HCl 0.2 mg tablet 0.2 mg PO BID 12/07/24 12/07/24 enzalutamide 40 mg capsule (Xtandi) 160 mg PO DAILY 12/07/24 12/07/24 metoprolol succinate 25 mg 25 mg PO BID 12/07/24 12/07/24 tablet,extended release 24 hr oxycodone 5 mg tablet 2.5 - 5 mg PO Q4HR PRN pain 12/07/24 12/07/24 warfarin 2 mg tablet 4 mg PO DAILY 12/07/24 12/07/24 PHYSICAL EXAM AT DISCHARGE General Appearance: positive No acute distress, Alert and Lethargic Eyes Bilateral: positive Normal inspection, PERRL and EOMI ENT: positive ENT inspection nml and Pharynx nml Neck: positive Nml inspection and Thyroid nml Respiratory: positive Chest non-tender, No respiratory distress and Rales (bibasilar crackles) Cardiovascular: positive Regular rate & rhythm, No murmur and Tachycardia Peripheral Pulses: positive 2+ Abdomen: positive Non-tender and No distention; negative Rebound, Hepatomegaly, Splenomegaly or Mass Back: positive Nml inspection; negative CVA tenderness (R) or CVA tenderness (L) Skin: positive Color nml, No rash and Warm Extremities: positive Non-tender, Full ROM, Nml appearance and Pedal edema (minimal trace edema noted) Neurologic/Psychiatric: positive Oriented x3, Motor nml and Sensation nml LABS 12/09/24 04:53 12/09/24 04:53 DIAGNOSTIC IMAGING Diagnostic Imaging Results: Final report reviewed QUALITY (Female Hip Fx Only) Was patient sent home on osteoporosis medication?: No FOLLOW UP Follow Up: Follow up with specialists at [facility]. TIME SPENT Time Spent in Discharge (Minutes): 50 Discharge Plan Discharge Patient Disposition: 02 Transfer Acute Care Hosp Condition: Stable Prescriptions: No Action tamsulosin 0.4 MG capsule 0.8 mg PO HS allopurinol 300 MG tablet 300 mg PO DAILY warfarin 2 mg tablet 4 mg PO DAILY Patient Comments: TAKE 5MG (2.5 TABLETS) BY MOUTH EVERY FRIDAY, TAKE 4MG (2 TABLETS) BY MOUTH EVERY OTHER DAY OR DIRECTED IN INR CALENDAR bumetanide 1 mg tablet 1 mg PO DAILY Patient Comments: TAKE 1 TABLET BY MOUTH ONCE DAILY metoprolol succinate 25 mg tablet extended release 24 hr 25 mg PO BID oxycodone 5 mg tablet 2.5 - 5 mg PO Q4HR PRN (Reason: pain) Patient Comments: TAKE 1/2 TO 1 (ONE-HALF TO ONE) TABLET BY MOUTH EVERY 4 HOURS NEEDED FOR SEVERE PAIN (CANCER RELATED PAIN) Xtandi 40 mg capsule 160 mg PO DAILY clonidine HCl 0.2 mg tablet 0.2 mg PO BID Patient Comments: TAKE 1 TABLET BY MOUTH TWICE DAILY amlodipine 5 mg tablet 5 mg PO HS Patient Comments: TAKE 1 TABLET BY MOUTH NIGHTLY Activity Restrictions: Activity as Tolerated Print Language: Swedish"
[2024-12-09 15:24] VITALS: O2SAT 91
[2024-12-09 16:29] VITALS: BP 103/74; TEMP 98.4
== END 2024-12-09 17:14 | disposition short-term general hospital (02) | DRG 189 ==
LOC: ED 07:09 → MS2 11:49 → ICU 12-08 10:34
PROVIDERS: ADMIT Internal Medicine; ATTEND Internal Medicine
DX: S20.212D Contusion of left front wall of thorax, subsequent encounter; J96.01 Acute respiratory failure with hypoxia; R33.8 Other retention of urine; I50.9 Heart failure, unspecified; E87.5 Hyperkalemia; D64.9 Anemia, unspecified; D63.0 Anemia in neoplastic disease; R00.0 Tachycardia, unspecified; R06.09 Other forms of dyspnea; I48.92 Unspecified atrial flutter; R53.83 Other fatigue; S20.219D Contusion of unspecified front wall of thorax, subsequent encounter; Z91.81 History of falling; I50.23 Acute on chronic systolic (congestive) heart failure; I48.91 Unspecified atrial fibrillation; N18.9 Chronic kidney disease, unspecified; I25.10 Atherosclerotic heart disease of native coronary artery without angina pectoris; G89.3 Neoplasm related pain (acute) (chronic); R39.198 Other difficulties with micturition; C61 Malignant neoplasm of prostate; N17.9 Acute kidney failure, unspecified; Z79.01 Long term (current) use of anticoagulants; C79.51 Secondary malignant neoplasm of bone